=== PATIENT | male | born 1960 | race Caucasian/White ===

== ENCOUNTER 2017-05-12 17:27 | Emergency (ER) | payer OTHER ==
[~2017-05-12] VITALS: Ht 170.2 cm; Wt 113.3 kg
[~2017-05-12 17:27] MED LIST changes: -ANTICRE6 PO
[2017-05-12 17:51] VITALS: TEMP 36.6; Ht 170.2 cm; Wt 113.3 kg
[2017-05-12] MEDS ORDERED: ANTICRE6 PO (18:14)
[2017-05-12] MEDS ORDERED: CIPROFLOXACIN 500 MG TAB PO STA (21:04)
[2017-05-12 21:56] VITALS: BP 127/83; PULSE 72; O2SAT 97
--- NOTE | 2017-05-12 22:50 | EMERGENCY ROOM VISIT NOTE ---
History Report prepared by Sergey: Steven Reynoso Under the Supervision of: Melissa VallesO. First contact with patient: 17:53 Chief Complaint: ABNORMAL DIAGNOSTIC TESTING Stated Complaint: BLADDER FULL- REFERRED History of Present Illness The patient is a 56 year old male who presents to the Emergency Room with complaints of a worsening urinary retention over the past few weeks. He states that he was told that he had a UTI a couple months ago, but he has not gotten rid of it completely. The patient says that when he feels the urge to urinate he goes, but does not void as much as he'd like. He states that he is still on antibiotics, and was told that he had Enterococcus. The patient says that he has felt abdominal fullness but no pain. He had an ultrasound today which revealed 2300 cc's in his bladder, so he was sent here. The patient says that he has never had a catheter inserted. The patient denies headache, change in vision, fevers, chest pain, shortness of breath, nausea, vomiting, diarrhea, pain with urination, and melena. Source of History: patient Onset: Over past few weeks Position: other (bladder) Symptom Intensity: 2300 cc's Quality: other (retention of urine) Timing: worsening Associated Symptoms: + abdominal pain (but feels full), + urinary symptoms, No fevers, No headache, No chest pain, No SOB, No nausea, No vomiting, No diarrhea Review of Systems See HPI for pertinent positives & negatives. A total of 10 systems reviewed and were otherwise negative. Past Medical & Surgical Medical Problems: (1) Bronchitis (2) No chronic diseases present (3) PNA (pneumonia) Family History Cancer Diabetes mellitus Heart disease Hypertension Social History Smoking Status: Never Smoker Marital Status: Housing Status: lives with family Occupation Status: employed Current/Historical Medications Scheduled [Antibiotic], 1 DOSE PO BID Allergies Coded Allergies: No Known Allergies (Verified , *, 05/12/17) Physical Exam Vital Signs Date Time Temp Pulse Resp B/P (MAP) Pulse Ox O2 Delivery O2 Flow Rate FiO2 05/12/17 21:56 72 18 127/83 97 05/12/17 20:05 67 18 134/92 97 Room Air 05/12/17 17:51 36.6 67 18 157/103 96 Room Air Physical Exam GENERAL: Sitting up in bed, alert, well appearing, well nourished, no distress, non-toxic EYE EXAM: normal conjunctiva. OROPHARYNX: no exudate, no erythema, lips, buccal mucosa, and tongue normal and mucous membranes are moist LUNGS: Clear to auscultation. Normal chest wall mechanics HEART: no murmurs, S1 normal and S2 normal ABDOMEN: abdomen soft, suprapubic tenderness, normo-active bowel sounds, no masses, no rebound or guarding. BACK: Back is symmetrical on inspection and there is no deformity, no midline tenderness, no CVA tenderness. SKIN: no rashes and no bruising UPPER EXTREMITIES: upper extremities are grossly normal. LOWER EXTREMITIES: No pitting edema. NEURO EXAM: Normal sensorium, cranial nerves II-XII grossly intact, normal speech, no gross weakness of arms, no gross weakness of legs. Medical Decision & Procedures Laboratory Results Test 05/12/17 18:55 Urine Color YELLOW Urine Appearance CLEAR (CLEAR) Urine pH 6.5 (4.5-7.5) Urine Specific [place] 1.022 (1.000-1.030) Urine Protein NEG (NEG) Urine Glucose (UA) NEG (NEG) Urine Ketones NEG (NEG) Urine Occult Blood NEG (NEG) Urine Nitrite NEG (NEG) Urine Bilirubin NEG (NEG) Urine Urobilinogen NEG (NEG) Urine Leukocyte Esterase NEG (NEG) Urine WBC (Auto) 1-5 /hpf (0-5) Urine RBC (Auto) 0-4 /hpf (0-4) Urine Hyaline Casts (Auto) 1-5 /lpf (0-5) Urine Epithelial Cells (Auto) 5-10 /lpf (0-5) Urine Bacteria (Auto) NEG (NEG) Laboratory results per my review. Medications Administered Medications (Trade) Dose Ordered Sig/Shaheen Route Start Time Stop Time Status Last Admin Dose Admin Ciprofloxacin (Cipro Tab) 500 mg NOW STAT PO 05/12/17 21:04 05/12/17 21:05 DC 05/12/17 21:54 500 MG ED Course ED COURSE: Vital signs were reviewed and showed hypertensive situational vitals. The patients medical record was reviewed The above diagnostic studies were performed and reviewed. ED treatments and interventions as stated above. 1801: The patient was evaluated in room A4B. A complete history and physical examination was performed. 2101: Upon reevaluation, the patient is resting comfortably.I discussed my findings with the patient and he understands and agrees with the treatment plan. Based on the patients age, coexisting illnesses, exam and lab findings the decision to treat as an outpatient was made. The patient remained stable while under my care. The patient appeared well at the time of discharge. Medical Decision Differential diagnoses includes but is not limited to gastritis, peptic ulcer disease, GERD, gallbladder disease, pancreatitis, small bowel obstruction, acute coronary syndrome, pericarditis, ischemic bowel, irritable bowel disease, irritable bowel syndrome, appendicitis, diverticulitis, malignancy, hernia, urinary tract infection, torsion, perforation, trauma, infectious. Patient is a 56-year-old male that presents the ER referred in by PCP as he was recently diagnosed with UTI and placed on antibiotics. With this and his urinary urgency and intermittent frequency and ultrasound was performed which showed enlarged bladder. Patient was referred in for Mnejivar. Menjivar was placed and 200 mL's was removed. This is removed gradually. He was given a dose of Cipro. He has an appointment with his PCP tomorrow. He will follow-up with him and urology as an outpatient. UA without signs of UTI. Since he is completely asymptomatic I do favor that this is likely a chronic urinary retention. Discussed with Pt concerning signs and symptoms to watch out for. Pt was instructed to follow up with their PCP and discussed with the patient their option to return to the ED at anytime for persistent or worsening symptoms. The appropriate anticipatory guidance and out-patient management, including indications for return to the emergency department, were explained at length to the patient and understood. Medication Reconcilliation Current Medication List: was personally reviewed by me Blood Pressure Screening Patient's blood pressure: Elevated blood pressure Blood pressure disposition: Elevated BP felt to be situational Impression Primary Impression: Urinary retention Scribe Attestation The scribe's documentation has been prepared under my direction and personally reviewed by me in its entirety. I confirm that the note above accurately reflects all work, treatment, procedures, and medical decision making performed by me. Departure Information Dispostion Home / Self-Care Referrals Eddy Camp M.D. (PCP) Kiran Fuentes M.D. Patient Instructions Catheter Bag Urinary Empty Clean, ED Catheter Care Menjivar, ED Retention Urinary Female, [facility] Additional Instructions Please follow up with your primary care doctor with in the next 24 hours. Any worsening of your symptoms, please return to the ED immediately. This includes any fevers greater than 100.4, worsening pain, chest pain, shortness breath, persistent nausea, vomiting, unable to eat or drink, or any other concerning signs or symptoms from your standpoint. Please keep your Menjivar site clean and follow-up with your physician tomorrow. Please set up an appointment with urology call their office first thing tomorrow morning. The numbers listed below.
== END 2017-05-12 21:59 | disposition home or self-care (01) ==
LOC: C.EDB 17:29 → C.EDA 21:59
DX: R33.9 Retention of urine, unspecified (principal); Z87.440 Personal history of urinary (tract) infections; Z87.01 Personal history of pneumonia (recurrent); Z80.9 Family history of malignant neoplasm, unspecified; Z83.3 Family history of diabetes mellitus; Z82.49 Family history of ischemic heart disease and other diseases of the circulatory system

== ENCOUNTER → 2017-05-12 | Outpatient (CLI) | payer OTHER ==
[~2017-05-12] MED LIST: ANTICRE6 PO; CEPH500C PO
--- NOTE | 2017-05-12 13:35 | DIAGNOSTIC IMAGING REPORT ---
EXAMINATION: RENAL ULTRASOUND CLINICAL HISTORY: Urinary tract infection COMPARISON STUDY: FINDINGS: The right kidney measures 11.1 cm. The left kidney measures 11.8 cm. There is no evidence of hydronephrosis. There is a 2.5 cm upper pole right renal cyst. There is a posterior bladder diverticulum. The prevoid volume was 2200 cc. The patient was instructed to void. There is a post void bladder volume of 2300 cc. IMPRESSION : 1. 2.5 cm upper pole right renal cyst 2. Distended bladder with a posterior bladder diverticulum. 3. The patient was unable to void. The post void bladder volume was 2300 cc Electronically signed by: Holden Sequeira M.D. 05/12/2017 1:34 PM Dictated Date/Time: 05/12/2017 11:49 AM
== END | disposition home or self-care (01) ==
LOC: C.ULTRBC 10:46
PROVIDERS: ATTEND Family Medicine
DX: N39.0 Urinary tract infection, site not specified (principal); N28.1 Cyst of kidney, acquired; N32.3 Diverticulum of bladder; R33.9 Retention of urine, unspecified

== ENCOUNTER 2021-02-19 17:57 | Inpatient (IN) ==
[2021-02-19] MEDS ORDERED: CEFEPIME 2,000 MG/20 ML VIAL IV STA (18:23)
[2021-02-19] MEDS ORDERED: ACETAMINOPHEN 500 MG TAB PO STA (18:23)
[2021-02-19] MEDS ORDERED: SODIUM CHLORIDE 0.9% 1000ML 2,000 ML IV ONE (18:23)
--- NOTE | 2021-02-19 18:23 | Emergency Department Note ---
Impression & Plan Gram-negative bacteremia, Dysuria, Complicated UTI (urinary tract infection), Hyponatremia, Acute dehydration ED Provider Note NAME: EYAL ROJAS II AGE: 60 SEX: M : 1960 ARRIVES VIA: Walk-In INFORMANT: Patient, ED PROVIDER(S): Jaylen Aguilar MD Chief Complaint: ED callback for positive blood cultures, urinary symptoms HPI: Patient does present due to concern as he was called and notified that he had positive blood cultures. The patient had had some urinary symptoms beginning several days ago and stated that he has had a UTI in the past and noticed this because it was cloudy and foul-smelling. Patient has had low-grade temperature and chills. The patient has had nausea but no vomiting. The p atient does complain of chronic low back pain but denies any flank pain. The patient denies any hematuria. The patient was started on antibiotics yesterday. Patient denies any chest pains or shortness of breath. The patient is vaccinated for COVID-19 as well as a flu. Patient is non-smoker. Patient has been taking [id number] medications at home in addition to his antibiotics. He does follow with Dr. Camp in the outpatient setting. ROS: See HPI for pertinent positives and negatives. A total of 10 systems were reviewed and otherwise negative. Past medical history: See below Surgical history: See below Social history: See below Physical Exam: GENERAL: Mildly ill in appearance, nontoxic. EYE EXAM: Normal conjunctiva. PERRL, no anisocoria and EOM's grossly intact w/o pain. OROPHARYNX: Dry mucus membranes. Grossly normal dentition. NECK: Supple, no nuchal rigidity, no adenopathy, non-tender. No signs of meningismus. LUNGS: Clear to auscultation. Normal chest wall mechanics. HEART: Tachycardic and regular, no MRG. ABDOMEN: Abdomen soft, non-tender, normo-active bowel sounds, no masses, no rebound or guarding. BACK: No CVA TTP. Mild lower lumbar midline pain but without step-offs or overlying skin changes. No paraspinal discomfort. SKIN: No rashes and no bruising. UPPER EXTREMITIES: Upper extremities are grossly normal. LOWER EXTREMITIES: Grossly normal, no edema. NEURO EXAM: A&O x3, cranial nerves II-XII grossly intact, normal speech, moves all 4 extremities on command w/o issue. Differential diagnoses: Sepsis, UTI, pneumonia, metabolic, electrolyte abnor malities, cardiac sources, intracerebral event, toxicologic, neurologic, as well as other pathologies. Course: Patient was seen and evaluated the bedside. Full history physical exam was performed. EKG interpreted by me Sinus tachycardia, rate of 103, normal intervals, normal axis, no ST changes or T WI. Imaging Studies: See Below Cardiac monitoring: An order was placed for continuous cardiac monitoring. The monitor shows a rate of 105 with tachycardic and regular rhythm. MDM: Patient is a white count of 14 with a normal H&H and platelet count. The patient's kidney function is unremarkable. Mild hyponatremia noted. Patient's lactate is normal. Urinalysis does not show obvious infection but the patient has been on antibiotics. The patient's blood cultures did show gram-negative bacilli as the patient upon presentation had been ordered cefepime. The patient does not have any flank pain do not believe he has likely kidney infection to warrant CT scan at this time. Patient has no abdominal pain. The patient does not complain of any cough. Screening chest x-ray ordered and negative. I did speak with the on-call hospitalist Dr. Esteban and the patient was admitted to the medicine service. Past Med/Surg History Medical History Bladder diverticulum Neurogenic bladder Tick bite of right thigh Surgical History No pertinent past surgical history Social History Smoking Status: Never smoker Feels Safe at Home: Yes Immunizations: Vaccinated for COVID-19 and flu Allergies Allergies Allergy/AdvReac Type Severity Reaction Status Date / Time No Known Allergies Allergy * Verified 02/19/21 18:20 Home Meds Previous Rx's Medication Instructions Recorded sulfamethoxazole 800 1 tab PO BID 10 Days #20 tab 02/19/21 mg-trimethoprim 160 mg tablet (Bactrim DS) Results & Data (ED) Vital Signs Vital Signs - 24 hr 02/19/21 18:12 02/19/21 18:46 02/19/21 19:09 Temperature 37.6 C H Temperature Source Skin Pulse Rate 111 H 99 H Pulse Rate [Apical] 106 H Pulse Rate from SpO2 Sensor Respiratory Rate 18 19 Respiratory Effort / Characteristics Non-Labored Spontaneous Respiratory Depth Normal Blood Pressure 151/87 H Blood Pressure [Left Arm] 124/63 Blood Pressure Mean 108 Blood Pressure Mean [Left Arm] 83 Pulse Oximetry 94 100 95 Oxygen Delivery Method Room Air Room Air Sepsis Recent Fever Within 48 Hours Yes Sepsis New/Unexplained Change in Mental Status No Sepsis Action Taken by Nursing No Action Required 02/19/21 19:18 02/19/21 19:50 02/19/21 20:00 Temperature Temperature Source Pulse Rate 100 H 107 H 103 H Pulse Rate [Apical] Pulse Rate from SpO2 Sensor 138 H 102 H Respiratory Rate 15 25 H 15 Respiratory Effort / Characteristics Respiratory Depth Blood Pressure 117/71 Blood Pressure [Left Arm] Blood Pressure Mean 86 Blood Pressure Mean [Left Arm] Pulse Oximetry 97 93 94 Oxygen Delivery Method Room Air Sepsis Recent Fever Within 48 Hours Sepsis New/Unexplained Change in Mental Status Sepsis Action Taken by Nursing 02/19/21 20:10 02/19/21 21:00 Temperature Temperature Source Pulse Rate 100 H 91 H Pulse Rate [Apical] Pulse Rate from SpO2 Sensor 99 H 88 Respiratory Rate 17 20 Respiratory Effort / Characteristics Respiratory Depth Blood Pressure 103/79 Blood Pressure [Left Arm] Blood Pressure Mean 87 Blood Pressure Mean [Left Arm] Pulse Oximetry 95 94 Oxygen Delivery Method Room Air Sepsis Recent Fever Within 48 Hours Sepsis New/Unexplained Change in Mental Status Sepsis Action Taken by Detention Medications Current Medication List: was personally reviewed by me Laboratory Data Attestation: I reviewed the patient's lab results. Result diagrams: 02/19/21 18:43 02/19/21 18:43 Lab Results 02/19/21 02/19/21 02/19/21 Range/Units 18:43 18:43 18:43 WBC 14.43 H (4.8-10.8) K/uL RBC 4.85 (4.7-6.1) M/uL Hgb 15.7 (14.0-18.0) g/dL Hct 45.2 (42-52) % MCV 93.2 (80-100) fL MCH 32.4 (25-34) pg MCHC 34.7 (32-36) g/dL RDW Std Deviation 42.0 (36.4-46.3) fL RDW Coeff of Jomar 12.4 (11.5-14.5) % Plt Count 183 (130-400) K/uL MPV 10.3 (7.4-10.4) fL Immature Gran % (Auto) 0.3 % Neut % (Auto) 89.4 % Lymph % (Auto) 3.7 % [place] % (Auto) 6.4 % Eos % (Auto) 0.1 % Baso % (Auto) 0.1 % Neut # (Auto) 12.90 H (1.4-6.5) K/uL Lymph # (Auto) 0.54 L (1.2-3.4) K/uL [place] # (Auto) 0.93 H (0.11-0.59) K/uL Eos # (Auto) 0.01 (0-0.5) K/uL Baso # (Auto) 0.01 (0-0.2) K/uL Immature Gran # (Auto) 0.04 H (0.00-0.02) K/uL PT 11.3 (9.0-12.0) Seconds INR 1.1 (0.9-1.1) APTT 28.5 (21.0-31.0) Seconds PTT Ratio 1.1 Sodium 134 L (136-145) mmol/L Potassium 3.8 (3.5-5.1) mmol/L Chloride 104 (98-107) mmol/L Carbon Dioxide 23 (21-32) mmol/L Anion Gap 7 (3-11) BUN 19 (6-23) mg/dl Creatinine 0.99 (0.6-1.4) mg/dl Est Cr Clr Drug Dosing 97.8 ml/min Est GFR ( Amer) 96.2 ml/min Est GFR (Non-Af Amer) 83.0 ml/min BUN/Creatinine Ratio 19.2 (10-20) Glucose 111 H (70-99) mg/dl Lactate (0.4-2.0) mmol/L Calcium 8.8 (8.5-10.1) mg/dl Magnesium 1.8 (1.7-2.4) mg/dl Total Bilirubin 1.1 H (0.2-1.0) mg/dl AST 20 (13-39) U/L ALT 27 (7-52) U/L Alkaline Phosphatase 59 (34-104) U/L Troponin I < 0.03 (0-0.04) ng/ml Total Protein 6.8 (6.0-8.3) gm/dl Albumin 4.0 (3.4-5.0) gm/dl Globulin 2.8 (2.5-4.0) gm/dl Albumin/Globulin Ratio 1.4 (0.9-2) TSH (0.300-4.500) uIu/ml Urine Color Urine Appearance (Clear) Urine pH (4.5-7.5) Ur Specific [place] (1.000-1.030) Urine Protein (Negative) Urine Glucose (UA) (Negative) Urine Ketones (Negative) Urine Blood (Negative) Urine Nitrite (Negative) Urine Bilirubin (Negative) Urine Urobilinogen (Negative) Ur Leukocyte Esterase (Negative) Urine WBC (Auto) (0-5) /hpf Urine RBC (Auto) (0-4) /hpf U Hyaline Cast (Auto) (0-5) /lpf U Epithel Cells (Auto) (0-5) /lpf Urine Bacteria (Auto) (Negative) Ur Renal Epithelial Cell 02/19/21 02/19/21 02/19/21 Range/Units 18:43 19:41 20:48 WBC (4.8-10.8) K/uL RBC (4.7-6.1) M/uL Hgb (14.0-18.0) g/dL Hct (42-52) % MCV (80-100) fL MCH (25-34) pg MCHC (32-36) g/dL RDW Std Deviation (36.4-46.3) fL RDW Coeff of Jomar (11.5-14.5) % Plt Count (130-400) K/uL MPV (7.4-10.4) fL Immature Gran % (Auto) % Neut % (Auto) % Lymph % (Auto) % [place] % (Auto) % Eos % (Auto) % Baso % (Auto) % Neut # (Auto) (1.4-6.5) K/uL Lymph # (Auto) (1.2-3.4) K/uL [place] # (Auto) (0.11-0.59) K/uL Eos # (Auto) (0-0.5) K/uL Baso # (Auto) (0-0.2) K/uL Immature Gran # (Auto) (0.00-0.02) K/uL PT (9.0-12.0) Seconds INR (0.9-1.1) APTT (21.0-31.0) Seconds PTT Ratio Sodium (136-145) mmol/L Potassium (3.5-5.1) mmol/L Chloride (98-107) mmol/L Carbon Dioxide (21-32) mmol/L Anion Gap (3-11) BUN (6-23) mg/dl Creatinine (0.6-1.4) mg/dl Est Cr Clr Drug Dosing ml/min Est GFR ( Amer) ml/min Est GFR (Non-Af Amer) ml/min BUN/Creatinine Ratio (10-20) Glucose (70-99) mg/dl Lactate 0.6 (0.4-2.0) mmol/L Calcium (8.5-10.1) mg/dl Magnesium (1.7-2.4) mg/dl Total Bilirubin (0.2-1.0) mg/dl AST (13-39) U/L ALT (7-52) U/L Alkaline Phosphatase (34-104) U/L Troponin I (0-0.04) ng/ml Total Protein (6.0-8.3) gm/dl Albumin (3.4-5.0) gm/dl Globulin (2.5-4.0) gm/dl Albumin/Globulin Ratio (0.9-2) TSH 0.857 (0.300-4.500) uIu/ml Urine Color Yellow Urine Appearance Clear (Clear) Urine pH 6.0 (4.5-7.5) Ur Specific [place] 1.017 (1.000-1.030) Urine Protein Negative (Negative) Urine Glucose (UA) Negative (Negative) Urine Ketones 1+ H (Negative) Urine Blood Negative (Negative) Urine Nitrite Negative (Negative) Urine Bilirubin Negative (Negative) Urine Urobilinogen Negative (Negative) Ur Leukocyte Esterase 1+ H (Negative) Urine WBC (Auto) 10-30 H (0-5) /hpf Urine RBC (Auto) 0-4 (0-4) /hpf U Hyaline Cast (Auto) 1-5 (0-5) /lpf U Epithel Cells (Auto) >30 H (0-5) /lpf Urine Bacteria (Auto) Negative (Negative) Ur Renal Epithelial Cell Not Reportable Administered Medications Discontinued Medications Acetaminophen (Acetaminophen 500 Mg Tab) 1,000 mg PO NOW STA Stop: 02/19/21 18:24 Last Admin: 02/19/21 19:15 Dose: 1,000 mg Documented by: [id number] Diclofenac Sodium (Diclofenac Sod 1% Gel 100 Gm Tube) 2 gm EXT ONE STA Stop: 02/19/21 21:20 Last Admin: 02/19/21 21:45 Dose: 2 gm Documented by: [id number] Cefepime HCl (Maxipime) 2,000 mg in 20 mls @ 5 mls/min IV NOW STA; Protocol Stop: 02/19/21 18:26 Last Admin: 02/19/21 19:15 Dose: 5 mls/min Documented by: [id number] Sodium Chloride (Nss 1000ml) 2,000 mls @ 999 mls/hr IV .Q2H1M ONE Stop: 02/19/21 20:23 Last Admin: 02/19/21 19:15 Dose: 999 mls/hr Documented by: [id number] Imaging Data Radiologist's Impression: Chest X-Ray 02/19/21 18:24 SINGLE VIEW CHEST CLINICAL HISTORY: Generalized weakness. FINDINGS: 2 AP, portable, semierect chest radiographs are compared to study performed earlier the same day 02/19/2021. The heart appears mildly enlarged. There is mild bibasilar scarring/atelectasis. No airspace consolidation or large pleural effusion is identified. No pneumothorax is seen. The bony thorax is grossly intact. IMPRESSION: No acute cardiopulmonary abnormality is identified. ACT 112: Negative or not required by law. Electronically signed by: Nuno Meehan M.D. 02/19/2021 7:11 PM Discharge Plan Visit Data Chief Complaint: Urinary Symptoms Stated Complaint: UTI, TOLD TO COME BACK ED Provider: Jaylen Aguilar Discharge Problem: Gram-negative bacteremia, Dysuria, Complicated UTI (urinary tract infection), Hyponatremia, Acute dehydration Patient Disposition: Admitted As Inpatient Discharge Instructions Interventions: ED Discharge Assessment Last Done: 02/19/21 22:19
[2021-02-19 19:01] LABS: Basophils # (auto) 0.01 K/uL (0-0.2); Basophils % (auto) 0.1 %; Eosinophils # (auto) 0.01 K/uL (0-0.5); Eosinophils % (auto) 0.1 %; Hematocrit (blood only) 45.2 % (42-52); Hemoglobin 15.7 g/dL (14.0-18.0); Immature Granulocytes # (auto) 0.04 K/uL (0.00-0.02); Immature Granulocytes % (auto) 0.3 %; Lymphocytes # (auto) 0.54 K/uL (1.2-3.4); Lymphocytes % (auto) 3.7 %; Mean Corpuscular Hemoglobin 32.4 pg (25-34); Mean Corpuscular Hgb Conc 34.7 g/dL (32-36); Mean Corpuscular Volume 93.2 fL (80-100); Mean Platelet Volume 10.3 fL (7.4-10.4); Monocytes # (auto) 0.93 K/uL (0.11-0.59); Monocytes % (auto) 6.4 %; Neutrophils % (auto) 89.4 %; Platelet Count 183 K/uL (130-400); RDW Coefficient of Variation 12.4 % (11.5-14.5); Red Blood Count 4.85 M/uL (4.7-6.1); White Blood Count 14.43 K/uL (4.8-10.8)
[2021-02-19 19:11] LABS: INR 1.1 (0.9-1.1); Partial Thromboplastin Ratio 1.1; Partial Thromboplastin Time 28.5 Seconds (21.0-31.0); Prothrombin Time 11.3 Seconds (9.0-12.0)
--- NOTE | 2021-02-19 19:12 | XRay Report ---
SINGLE VIEW CHEST CLINICAL HISTORY: Generalized weakness. FINDINGS: 2 AP, portable, semierect chest radiographs are compared to study performed earlier the 02/19/2021. The heart appears mildly enlarged. There is mild bibasilar scarring/atelectasis. No airspace consolidation or large pleural effusion is identified. No pneumothorax is seen. The bony tho rax is grossly intact. IMPRESSION: No acute cardiopulmonary abnormality is identified. ACT 112: Negative or not required by law. Electronically signed by: Nuno Meehan M.D. 02/19/2021 7:11 PM
--- NOTE | 2021-02-19 19:22 | History & Physical Report ---
Date of Service February 19, 2021 Assessment & Plan (1) Complicated UTI (urinary tract infection): Plan: 60 y/o M w/ PMHx of BPH, neurogenic bladder, and recurrent UTIs (chronic intermittent cath) who presents w/ acute complicated UTI w/ resultant bacteremia and sepsis. cultures: 1 AM blood cultures w/ 2 bottles prelim growing gram neg bacilli. 02/19 PM blood cultures pending. 02/19 urine culture pending. - With tachycardia and leukocytosis; 2/4 SIRS - Cefepime 2g q12h IV for treatment of gram neg bacilli bacteremia; covering for pseudomonas. Prior cultures [id number] grew e coli, coag neg staph, Klebsiella oxytoca. Mostly pansensitive, w/ some cultures resistant to Unasyn and another to Cefazolin. Feb and April 2017, he grew tetracycline resistant enterococcus (sensitive to everything else including amp, FQ, vanc). Considered adding coverage for enterococcus such as Ampicillin or Vancomycin, defer given lower suspicion for enterococcus as last was in 2018. - Lower suspicion for pyelo at this time. Defer imaging unless new/worsened symptoms or if suspect new urinary tract obstruction. Mention of posterior bladder diverticulum but no mention of stone on 05/12/17 renal US. - Low back pain not in area of flank. Tylenol PRN. Voltaren gel and ice PRN - No repeat of blood cultures indicated. Source most likely urinary. - Fluid resuscitation: s/p 2L NSS in ED. Will provide 2 bags of maintenance fluid. Exam and hx not suggestive of CHF. BPH - Not on any medication therapy. Was on finasteride over one year ago. - Encourage patient to f/u w/ urology as outpatient to rediscuss finasteride vs Flomax. Neurogenic bladder and recurrent UTIs - Since 2018, patient chronic intermittently self-caths. Continue intermittent cath q4h scheduled + prn. - Was on prophylactic abx methenamine in past, but nonadherent and has not taken in ~ 9 months. FEN/GI: regular diet. 150/hr NSS x 2 bags. ppx: Lovenox sq code: full dispo: med/surg tele (2) Gram-negative bacteremia: (3) Benign prostatic hyperplasia with urinary obstruction: (4) Neurogenic bladder: History of Present Illness Chief Complaint: Bacteremia Primary Care Provider: Eddy Camp MD 60 y/o M w/ PMHx of BPH, neurogenic bladder, bladder diverticulum and recurrent UTIs (chronic intermittent cath, no preventive abx) who was seen in the ED yesterday for UTI (several hours of new nausea, chills, malodorous urine; s/p 1 dose Rocephin and discharged home w/ Bactrim) who represents today for gram neg bacilli bacteremia on prelim blood cultures. Denies suprapubic or abd pain. Saw chiropractor 2 days ago for back adjustment for sacral area low back pain s/p heavy snow shoveling. Still has 4/10 middle sacral low back pain. IV tylenol helping. Currently, just uncomfortable from his back. Today, chills are much better. ED course: Cefepime 2g. 2L NSS. Allergies Allergy/AdvReac Type Severity Reaction Status Date / Time No Known Allergies Allergy * Verified 02/19/21 18:20 Home Medications Medication Instructions Recorded Confirmed Type sulfamethoxazole 800 1 tab PO BID 10 Days #20 tab 02/19/21 02/19/21 Rx mg-trimethoprim 160 mg tablet (Bactrim DS) Past Med/Surg History Medical History Bladder diverticulum Neurogenic bladder Surgical History No pertinent past surgical history Social History Smoking Status: Former smoker Second Hand Exposure: No; Do You Dip or Chew Tobacco: No; Hx Alcohol Use: Yes Alcohol type: hard liquor Hx Substance Use: No Preferred Language: Ghanaian Communication Ability: Effective Heel Sorter Required: No Beliefs That Will Affect Care: None Current Living Situation: Spouse Feels Safe at Home: Yes Safety Concerns: Feels Safe At This Time Assistive Devices: Glasses Review of Systems Review of Systems: All systems reviewed & are unremarkable except as noted in HPI & below Constitutional: + fatigue Eyes: Denies blurry vision ENT: Denies sore throat, sinus pain Cardiovascular: Denies chest pain, palpitations Respiratory: Mild dyspnea yesterday, since resolved. Quit smoking 30 years ago. 10-15 year pack hx. Gastrointestinal: Denies abdominal pain, nausea, vomiting, constipation, diarrhea Genitourinary: See HPI Musculoskeletal: Denies weakness. + low back pain (sacral area, middle). Neurological: Denies headache, numbness, tingling, focal weakness Physical Exam Physical Exam: General: Grossly A&O. NAD. Cooperative. Appears mildly uncomfortable from low back pain; difficult to find comfortable position in bed. HEENT: Atraumatic, normocephalic. EOMI. PERRL. MMM. Pulm: CTAB. -wheezes, -rales, -rhonchi. Slightly tight sounding. No respiratory distress. Cardiac: RRR, -mrg. Radial pulses intact and symmetrical. Abdominal: Nontender, nondistended, soft. Back: No CVA TTP. Neuro: Strength and sensation of extremities intact. Integ: Warm, dry, intact. Results & Data Results & Data ([facility]) Vital Signs (Past 12 Hours) Vital Signs HR mostly upper 90s. 37.6C x1. 94-100 sat on room air. 90-94 while in room. Temp Pulse Pulse Resp BP BP Pulse Ox 02/19/21 19:09 95 02/19/21 18:46 99 H 106 H 19 124/63 100 02/19/21 18:12 37.6 C H 111 H 18 151/87 H 94 Laboratory Results wbc 11.65->14.43, neutrophil predom. Na 134L. K 3.8. Cr 0.99. Mg 1.8. trop <0.03. TSH pending. UA w/ 2+ leuk esterase and >30 wbc. covid neg. 02/19/21 18:43 Coagulation 02/19/21 Range/Units 18:43 PT 11.3 (9.0-12.0) Seconds APTT 28.5 (21.0-31.0) Seconds CBC 02/19/21 Range/Units 18:43 WBC 14.43 H (4.8-10.8) K/uL RBC 4.85 (4.7-6.1) M/uL Hgb 15.7 (14.0-18.0) g/dL Hct 45.2 (42-52) % Plt Count 183 (130-400) K/uL Neut # (Auto) 12.90 H (1.4-6.5) K/uL Lymph # (Auto) 0.54 L (1.2-3.4) K/uL Grand # (Auto) 0.93 H (0.11-0.59) K/uL Eos # (Auto) 0.01 (0-0.5) K/uL Baso # (Auto) 0.01 (0-0.2) K/uL Intake and Output 02/19/21 02/19/21 02/19/21 06:59 14:59 22:59 Other: Weight 116 kg Patient Weight 02/20/21 06:59 Weight 116 kg Diagnostic Findings Chest X-Ray 02/19/21 18:24 SINGLE VIEW CHEST CLINICAL HISTORY: Generalized weakness. FINDINGS: 2 AP, portable, semierect chest radiographs are compared to study performed earlier the same day 02/19/2021. The heart appears mildly enlarged. There is mild bibasilar scarring/atelectasis. No airspace consolidation or large pleural effusion is identified. No pneumothorax is seen. The bony thorax is grossly intact. IMPRESSION: No acute cardiopulmonary abnormality is identified. ACT 112: Negative or not required by law. Electronically signed by: Nuno Meehan M.D. 02/19/2021 7:11 PM ECG Additional Comments: ecg 02/19/21 19:08. Per my read, NSRR 96, normal axis and intervals. No ST-T changes. Code Status & VTE Plan Code Status full VTE Prophylaxis Plan VTE Prophylaxis will be ordered: Yes Supervising Physician Co-Signing Physician Notes Patient seen and examined, chart reviewed, case discussed with Dr. West and I agree with his assessment and plan as documented above. In brief, patient is a 60yo male with neurogenic bladder with urinary retention and recurrent UTIs. Patient self-catheterizes several times per day. He has been seen by Urology for this issue, last in 12/2019. Patient seen in the ER earlier today 02/19/21 with nausea, chills and foul smelling urine thought to be secondary to UTI. He was administered a dose of IV Ceftriaxone and discharged home on Bactrim. Patient returns to the ER today as blood cultures drawn earlier have grown gram negative bacilli. Overall feels tired. He has back pain following recent shoveling. No additional complaints On exam he is resting comfortably in bed, NAD Skin - warm, dry, intact HEENT - NC/AT,PERRL, MMM, Neck supple Heart - +S1/S2, regular, no m/r/g Lungs - CTA Abd- mild abdominal discomfort with palpation, no rebound/guarding/peritoneal signs Ext - warm, well perfused Labs and images reviewed. Significant for neutrophil predominant leukocytosis with WBC=14.43, Na of 134 Blood cultures from 02/19/21 at 00:57 and 01:07 POSITIVE for GNB in aerobic and anaerobic bottles Urine culture from 02/19/21 PENDING Blood cultures sent this evening PENDING Assessment/Plan - 60yo male presenting with gram negative bacilli bacteremia. Technically with sepsis on arrival (SIRS 3/4) blood and urine source. He is HD stable and nontoxic in appearance -Follow cultures, speciation sn/sp -Cefepime 2gm IV BID -Remainder as above Resident Activity Tracking Resident Involvement: Resident Care Provided Care Provided: Adult Hospital Medicine
[2021-02-19 19:27] LABS: Troponin I < 0.03 ng/ml (0-0.04)
[2021-02-19 19:36] LABS: Alanine Aminotransferase 27 U/L (7-52); Albumin Globulin Ratio 1.4 (0.9-2); Alkaline Phosphatase 59 U/L (34-104); Anion Gap 7 (3-11); Aspartate Aminotransferase 20 U/L (13-39); BUN Creatinine Ratio 19.2 (10-20); Bilirubin,Total 1.1 mg/dl (0.2-1.0); Blood Urea Nitrogen 19 mg/dl (6-23); Calcium 8.8 mg/dl (8.5-10.1); Carbon Dioxide 23 mmol/L (21-32); Chloride 104 mmol/L (98-107); Creatinine Clr Calc Pharmacy 97.8 ml/min; Est GFR (African American) 96.2 ml/min; Globulin 2.8 gm/dl (2.5-4.0); Glucose 111 mg/dl (70-99); Magnesium 1.8 mg/dl (1.7-2.4); Potassium 3.8 mmol/L (3.5-5.1); Sodium 134 mmol/L (136-145); Total Protein 6.8 gm/dl (6.0-8.3)
[2021-02-19] MEDS ORDERED: DICLOFENAC SOD 1% GEL 100 GM TUBE EXT STA (21:19)
[2021-02-19 21:22] LABS: Appearance Urine Clear (Clear); Bacteria Urine Automated Negative (Negative); Bilirubin Urine Negative (Negative); Blood Urine Negative (Negative); Color Urine Yellow; Epithelial Cell Urine Auto >30 /lpf (0-5); Glucose Urine UA Negative (Negative); Ketones Urine 1+ (Negative); Leukocyte Esterase Urine 1+ (Negative); Nitrite Urine Negative (Negative); Protein Urine Negative (Negative); RBC Urine Automated 0-4 /hpf (0-4); Specific Gravity Urine 1.017 (1.000-1.030); Urobilinogen Urine Negative (Negative)
[2021-02-19] MEDS ORDERED: POTASSIUM CHLORIDE PWD 20 MEQ PACK PO STA (21:42)
[2021-02-19] MEDS ORDERED: ONDANSETRON INJ 2 MG/ML 2 ML VIAL IV PRN (22:38)
[2021-02-19] MEDS ORDERED: POLYETHYLENE (MIRALAX) 17 GM PACK PO PRN (22:38)
[2021-02-19] MEDS ORDERED: DICLOFENAC SOD 1% GEL 100 GM TUBE EXT PRN (22:38)
[2021-02-19] MEDS: ENOXAPARIN INJ 40 MG/0.4 ML SYR SQ SCH (23:13)
[2021-02-19] MEDS: SODIUM CHLORIDE 0.9% 1000ML 1,000 ML IV SCH (23:14)
[2021-02-20] MEDS ORDERED: ACETAMINOPHEN 325 MG TAB PO PRN ×2 (01:10→03:15)
[2021-02-20] MEDS: CEFEPIME 2,000 MG in SYRINGE 0 ML IV SCH ×3 (03:19→20:06)
[2021-02-20] MEDS: SODIUM CHLORIDE 0.9% 1000ML 1,000 ML IV SCH (05:54)
[2021-02-20 07:20] LABS: Basophils # (auto) 0.01 K/uL (0-0.2); Basophils % (auto) 0.1 %; Eosinophils # (auto) 0.02 K/uL (0-0.5); Eosinophils % (auto) 0.2 %; Hematocrit (blood only) 42.1 % (42-52); Hemoglobin 14.3 g/dL (14.0-18.0); Immature Granulocytes # (auto) 0.02 K/uL (0.00-0.02); Immature Granulocytes % (auto) 0.2 %; Lymphocytes # (auto) 0.96 K/uL (1.2-3.4); Lymphocytes % (auto) 9.2 %; Mean Corpuscular Hemoglobin 32.1 pg (25-34); Mean Corpuscular Volume 94.6 fL (80-100); Mean Platelet Volume 9.9 fL (7.4-10.4); Monocytes # (auto) 0.89 K/uL (0.11-0.59); Monocytes % (auto) 8.6 %; Neutrophils # (auto) 8.49 K/uL (1.4-6.5); Neutrophils % (auto) 81.7 %; Platelet Count 149 K/uL (130-400); RDW Coefficient of Variation 12.7 % (11.5-14.5); RDW Standard Deviation 44.3 fL (36.4-46.3); Red Blood Count 4.45 M/uL (4.7-6.1); White Blood Count 10.39 K/uL (4.8-10.8)
[2021-02-20 07:45] LABS: Albumin Globulin Ratio 1.3 (0.9-2); Albumin Level 3.4 gm/dl (3.4-5.0); BUN Creatinine Ratio 12.5 (10-20); Bilirubin,Total 0.6 mg/dl (0.2-1.0); Creatinine Clr Calc Pharmacy 101.1 ml/min; Est GFR (African American) 99.9 ml/min; Est GFR (Non-African American) 86.2 ml/min; Globulin 2.6 gm/dl (2.5-4.0)
[2021-02-20] MEDS ORDERED: ACETAMINOPHEN 325 MG TAB PO SCH (10:45)
[2021-02-20] MEDS: ACETAMINOPHEN 325 MG TAB PO SCH ×3 (11:36→23:00)
[2021-02-20] MEDS: LIDOCAINE 5% 1 PATCH TD SCH (11:38)
--- NOTE | 2021-02-20 18:43 | Electrocardiogram Report ---
Test Reason : Blood Pressure : / mmHG Vent. Rate : 096 BPM Atrial Rate : 096 BPM P-R Int : 142 ms QRS Dur : 084 ms QT Int : 330 ms P-R-T Axes : 036 054 046 degrees QTc Int : 416 ms Normal sinus rhythm Normal ECG When compared with ECG of 19-FEB-2021 00:57, No significant change was found Confirmed by Tremayne Little ([id number]) on 02/20/2021 6:42:39 PM Referred By: REFERRED SELF Confirmed By:Tremayne Little
--- NOTE | 2021-02-20 20:37 | Hospitalist Progress Note ---
Date of Service February 20, 2021 Assessment & Plan (1) Complicated UTI (urinary tract infection): Plan: 60 y/o M w/ PMHx of BPH, neurogenic bladder, and recurrent UTIs (chronic intermittent cath) who presents w/ acute complicated UTI w/ resultant bacteremia and sepsis. cultures: 02/19 AM blood cultures w/ 2 bottles prelim growing gram neg bacilli. 02/19 PM blood cultures pending. 02/19 urine culture pending. UTI with sepsis likely due to intermittent self catheterization - With tachycardia and leukocytosis; 2/4 SIRS - Cefepime 2g q12h IV for treatment of gram neg bacilli bacteremia; covering for pseudomonas. Prior cultures [id number] grew e coli, coag neg staph, Klebsiella oxytoca. Mostly pansensitive, w/ some cultures resistant to Unasyn and another to Cefazolin. Feb and April 2017, he grew tetracycline resistant enterococcus (sensitive to everything else including amp, FQ, vanc). Considered adding coverage for enterococcus such as Ampicillin or Vancomycin, defer given lower suspicion for enterococcus as last was in 2018. - Lower suspicion for pyelo at this time. Defer imaging unless new/worsened symptoms or if suspect new urinary tract obstruction. Mention of posterior bladder diverticulum but no mention of stone on 05/12/17 renal US. - Low back pain not in area of flank. Tylenol PRN. Voltaren gel and ice PRN - No repeat of blood cultures indicated. Source most likely urinary. - Fluid resuscitation: s/p 2L NSS in ED. Will provide 2 bags of maintenance fluid. Exam and hx not suggestive of CHF. On 02/21/20 -Patient had a fever in the AM. -Afebrile since. -awaiting cultures -continue antibiotics -need 24-48 h without fever or culture results. (2) Gram-negative bacteremia: Plan: from problem 1 as above (3) Benign prostatic hyperplasia with urinary obstruction: Plan: - Not on any medication therapy. Was on finasteride over one year ago. - Encourage patient to f/u w/ urology as outpatient to rediscuss finasteride vs Flomax. (4) Neurogenic bladder: Plan: - Since 2018, patient chronic intermittently self-caths. Continue intermittent cath q4h scheduled + prn. - Was on prophylactic abx methenamine in past, but nonadherent and has not taken in ~ 9 months. FEN/GI: regular diet. 150/hr NSS x 2 bags. ppx: Lovenox sq code: full dispo: med/surg tele (5) Morbid obesity with body mass index (BMI) of 40.0 to 49.9: Plan: will recommend lifestyle modifications. will defer followup discussion to PCP Admission and Anticipated Discharge Date Admission Date: February 19, 2021 Subjective 60 yo male reports feeling better. He does complain of chronic back pain. 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 He states Tuesday will be a busy day. Review of Systems Review of Systems: All systems reviewed & are unremarkable except as noted in HPI & below Physical Exam Physical Exam: General: Grossly A&O. NAD. Cooperative. comfortable in bed. HEENT: Atraumatic, normocephalic. EOMI. PERRL. MMM. Pulm: CTAB. -wheezes, -rales, -rhonchi. Slightly tight sounding. No respiratory distress. Cardiac: RRR, -mrg. Radial pulses intact and symmetrical. Abdominal: Nontender, nondistended, soft. Back: No CVA TTP. Neuro: Strength and sensation of extremities intact. Integ: Warm, dry, intact. Results & Data Results & Data ([facility]) Vital Signs (Past 12 Hours) Vital Signs Temp Pulse Pulse Resp BP Pulse Ox 02/20/21 19:32 36.9 C 78 18 137/77 94 02/20/21 17:40 79 02/20/21 17:03 36.7 C 80 20 134/82 97 02/20/21 16:23 37.6 C H 81 24 168/74 H 94 02/20/21 16:00 79 02/20/21 12:59 37.8 C H 02/20/21 11:27 38.5 C H 93 H 16 152/80 H 95 02/20/21 08:53 37.3 C 90 18 141/75 H 94 PG Care Time/CCT Total # of Minutes Spent Total Time Spent with Patient: Total time spent is greater than 50% in coordination of care (as documented) at patient's floor/unit and/or counseling patient: Coding Level of Care Code 24626 Subseq Hosp Care Lvl 2 Diagnoses Complicated UTI (urinary tract infection) N39.0 Gram-negative bacteremia R78.81 Benign prostatic hyperplasia with urinary obstruction N40.1; N13.8 Neurogenic bladder N31.9 Morbid obesity with body mass index (BMI) of 40.0 to 49.9 E66.01
[2021-02-20] MEDS: ENOXAPARIN INJ 40 MG/0.4 ML SYR SQ SCH (22:59)
[2021-02-21] MEDS: CEFEPIME 2,000 MG in SYRINGE 0 ML IV SCH (03:48)
[2021-02-21] MEDS: ACETAMINOPHEN 325 MG TAB PO SCH ×2 (06:11→10:51)
[2021-02-21] MEDS: LIDOCAINE 5% 1 PATCH TD SCH (08:08)
[2021-02-21 10:15] LABS: Hematocrit (blood only) 43.8 % (42-52); Hemoglobin 15.1 g/dL (14.0-18.0); Mean Corpuscular Hemoglobin 32.1 pg (25-34); Mean Corpuscular Hgb Conc 34.5 g/dL (32-36); Mean Corpuscular Volume 93.2 fL (80-100); Mean Platelet Volume 10.5 fL (7.4-10.4); Platelet Count 188 K/uL (130-400); RDW Coefficient of Variation 12.5 % (11.5-14.5); RDW Standard Deviation 42.9 fL (36.4-46.3); White Blood Count 6.64 K/uL (4.8-10.8)
[2021-02-21] MEDS ORDERED: traMADol HCL 50 MG TABLET PO STA (10:21)
[2021-02-21] MEDS ORDERED: cefTRIAXone SODIUM 2,000 MG in DEXTROSE 5% 50 ML IV STA (10:41)
[2021-02-21 10:47] LABS: BUN Creatinine Ratio 13.1 (10-20); Calcium 8.6 mg/dl (8.5-10.1); Creatinine Clr Calc Pharmacy 114.3 ml/min; Est GFR (African American) 111.1 ml/min; Est GFR (Non-African American) 95.8 ml/min; Potassium 3.7 mmol/L (3.5-5.1)
--- NOTE | 2021-02-21 16:27 | Discharge Summary ---
Date of Service February 21, 2021 Admission HPI Per Admitting Provider 60 y/o M w/ PMHx of BPH, neurogenic bladder, bladder diverticulum and recurrent UTIs (chronic intermittent cath, no preventive abx) who was seen in the ED yesterday for UTI (several hours of new nausea, chills, malodorous urine; s/p 1 dose Rocephin and discharged home w/ Bactrim) who represents today for gram neg bacilli bacteremia on prelim blood cultures. Denies suprapubic or abd pain. Saw chiropractor 2 days ago for back adjustment for sacral area low back pain s/p heavy snow shoveling. Still has 4/10 middle sacral low back pain. IV tylenol helping. Currently, just uncomfortable from his back. Today, chills are much better. ED course: Cefepime 2g. 2L NSS. Principal Diagnosis UTI with bacteremia Lower back pain Discharge Exam Constitutional WD/WN, vitals as above Eyes EOM intact bilaterally; no conjunctival abnormality ENMT external ear and nose normal, oropharynx normal Neck trachea midline, no thyromegaly normal visual inspection Respiratory normal respiratory effort, lungs clear to auscultation no respiratory distress Cardiovascular RRR, no murmur, no edema Gastrointestinal (Abdomen) Inspection/Auscultation: abdomen normal to inspection; abdomen not distended Musculoskeletal no cyanosis or clubbing, extremities motor strength 5/5 Spine: + lumbar spinal tenderness Skin no rashes, warm and dry Neurologic moves all extremities and awake Psychiatric Orientation: alert, oriented to person and cooperative Discharge Data Allergies Allergy/AdvReac Type Severity Reaction Status Date / Time No Known Allergies Allergy * Verified 02/19/21 18:20 Consultations 02/19/21 19:06 ED Decision to Admit Stat Hospital Course (1) Complicated UTI (urinary tract infection): 60 y/o M w/ PMHx of BPH, neurogenic bladder, and recurrent UTIs (chronic intermittent cath) who presents w/ acute complicated UTI w/ resultant bacteremia and sepsis. cultures: 1 AM blood cultures w/ 2 bottles prelim growing gram neg bacilli. 02/19 PM blood cultures pending. 02/19 urine culture pending. UTI with sepsis likely due to intermittent self catheterization - With tachycardia and leukocytosis; 2/4 SIRS - Cefepime 2g q12h IV for treatment of gram neg bacilli bacteremia; covering for pseudomonas. Prior cultures [id number] grew e coli, coag neg staph, Klebsiella oxytoca. Mostly pansensitive, w/ some cultures resistant to Unasyn and another to Cefazolin. Feb and April 2017, he grew tetracycline resistant enterococcus (sensitive to everything else including amp, FQ, vanc). Considered adding coverage for enterococcus such as Ampicillin or Vancomycin, defer given lower suspicion for enterococcus as last was in 2018. - Lower suspicion for pyelo at this time. Defer imaging unless new/worsened symptoms or if suspect new urinary tract obstruction. Mention of posterior bladder diverticulum but no mention of stone on 05/12/17 renal US. - Low back pain not in area of flank. Tylenol PRN. Voltaren gel and ice PRN - No repeat of blood cultures indicated. Source most likely urinary. -awaiting cultures -continue antibiotics -need 24-48 h without fever or culture results. -> Urine and blood all with Klebsiella. Sensitive to FLQs. Discharged on 7 more days of ciprofloxacin. Encouraged PCP and urology f/u to see if there are other alternatives to self-cathing. (2) Gram-negative bacteremia: from problem 1 as above (3) Benign prostatic hyperplasia with urinary obstruction: - Not on any medication therapy. Was on finasteride over one year ago. - Encourage patient to f/u w/ urology as outpatient to rediscuss finasteride vs Flomax. (4) Neurogenic bladder: - Since 2018, patient chronic intermittently self-caths. Continue intermittent cath q4h scheduled + prn. - Was on prophylactic abx methenamine in past, but nonadherent and has not taken in ~ 9 months. - Encouraged to f/u with urology. (5) Back pain: Reports occasional back pain episodes which he is experiencing right now. Usually sees a chiropractor, but has not had a chance due to his UTI and bacteremia. - Encouraged NSAIDs and Tylenol within the bottle limits for the next 4-5 days. - Topical care with lidocaine patches or gel - Heat/cold packs - As last resort, prescribed short course of tramadol - Encouraged to f/u with chiropractor or spinal surgeon. He reported he knows Dr. Hernandez, and I offered to officially consult him, but the patient declined ("No need to get him involved."). Given Gram(-) bacteriemia, I have low concern for osteomyelitis or diskitis. No neurologic issues to indicate acute spinal cord issue (apart from his stable, chronic urinary retention). (6) Morbid obesity with body mass index (BMI) of 40.0 to 49.9: will recommend lifestyle modifications. will defer followup discussion to PCP Total Time Total Time Spent Total Time Spent (In Minutes): 35 Discharge Plan Discharge Items Patient Disposition: Home - Self-Care Reason For Visit: BACTEREMIA UTI Discharge Diagnosis: Urinary tract infection with some bacteria getting into the bloodstream Activity: Resume your previous activity Non-emergency contact: Primary Care Provider Call non-emergency contact if: your symptoms worsen, your pain is not controlled and your temperature is above 101 Follow-up/Referrals: Eddy Camp MD [Primary Care Provider] - (PLEASE CALL YOUR PRIMARY CARE PROVIDER TO SCHEDULE A DISCHARGE FOLLOW-UP APPOINTMENT WITHIN 7-10 DAYS.) Diet: Regular Addtl Attending Provider Instructions: Mr. Wellington, You were admitted to the hospital with bacteria in the urine and the bloodstream. Luckily, the kind of bacteria are what we consider more "wimpy" variety, and they can be treated successfully with pill antibiotics. You will take Cipro (ciprofloxacin) for 7 more days. You should NOT take the Bactrim you were previously prescribed. There is no benefit to taking multiple antibiotics and the Bactrim is not a good option while using the NSAID medications for your back. I would encourage you to go to your Urology doctor (or find one) because there may be other options rather than self-catheterization. Please see your PCP in a week or so to be sure you are doing well. For your back, here is the plan of attack: 1) You can take ibuprofen/Motrin or naproxen/Aleve up to the bottle recommendations for about 5 days without any major issues. However, doing this for weeks on end can result in stomach ulcers and kidney issues, so this is a "short-term" solution. These are called NSAID medications and will likely be the most effective. 2) You can also safely take Tylenol. Take 3 grams or less (that's 6 "extra strength" pills per day). Again, this is meant to be a temporary level of usage. Taking that much Tylenol for more than 3-4 days can be hard on your liver. 3) I have sent in 2 weeks worth of lidocaine patches for your lower back. If they are not covered by insurance, you can also use "Gian-[place] with Lido" patches which are almost as strong and usually about $10 per box. [employer]atan also makes a lidocaine cream which could help. Do NOT use "Voltaren" or "diclofenac" gel as this is an NSAID (similar to ibuprofen/Motrin or naproxen/Aleve), and the effects can stack up. 4) I have prescribed you a short course (3 days) of a narcotic medication. You can safely take this along with the ibuprofen/Motrin or naproxen/Aleve or Tylenol. This is meant to be your "last resort" medication if #1, #2, and #3 are not working. Every single person has some level of opiate addiction potential, so the less you take of this and the shorter the time you use it, the better. You should not drive while on the narcotic medication. You can use heat packs/cold packs or other local therapies in addition to the oral medications. Please see your chiropractor or Dr. Hernandez as soon as you are able to as this has helped relieve your back pain in the past. Pending Studies at Discharge: No Stand-Alone Forms: [facility], Smoking Cessation Medications and DC Order Prescriptions: New lidocaine 5 % Adhesive Patch,Medicated 1 patch transdermal QAM PRN (Reason: back pain) Qty: 15 RF: 0 ciprofloxacin HCl 500 mg tablet 500 mg PO BID Qty: 14 RF: 0 tramadol 50 mg tablet 50 mg PO TID PRN (Reason: pain) Qty: 14 RF: 0 Discontinued sulfamethoxazole-trimethoprim [Bactrim DS] 800-160 mg tablet 1 tab PO BID 10 Days Qty: 20 RF: 0 Discharge Orders: Discharge Order (Routine); Ordered 02/21/21 Ordered By: Matias Cline Admission Data Admit Date/Time: 02/19/21 21:11 Attending Provider: Matias Cline Admit Provider: Deep West Primary Care Provider: Eddy Camp Other Providers: Matias Cline Other Interventions: Discharge Summary Assessment (RN) Last Done: 02/21/21 10:43 Coding Level of Care Code D/C DAY MANAGEMENT >30 MINS Diagnoses Complicated UTI (urinary tract infection) N39.0 Gram-negative bacteremia R78.81 Benign prostatic hyperplasia with urinary obstruction N40.1; N13.8 Neurogenic bladder N31.9 Morbid obesity with body mass index (BMI) of 40.0 to 49.9 E66.01 Back pain M54.9
== END 2021-02-21 12:53 | disposition home or self-care (01) | DRG 698 ==
LOC: ED 17:57 → SUATTDRO 21:11 → 1E 21:11 → 2N 02-20 17:02

== ENCOUNTER 2024-01-17 10:30 | Inpatient (IN) ==
[2024-01-17 11:17] LABS: Basophils # (auto) 0.03 K/uL (0.00-0.20); Basophils % (auto) 0.2 %; Eosinophils # (auto) 0.02 K/uL (0.00-0.50); Eosinophils % (auto) 0.2 %; Hematocrit (blood only) 42.9 % (42.0-52.0); Hemoglobin 15.1 g/dl (14.0-18.0); Immature Granulocytes # (auto) 0.04 K/uL (0.01-0.20); Immature Granulocytes % (auto) 0.3 %; Lymphocytes # (auto) 0.86 K/uL (1.20-3.40); Mean Corpuscular Hemoglobin 32.1 pg (25.0-34.0); Mean Corpuscular Hgb Conc 35.2 g/dL (32.0-36.0); Mean Corpuscular Volume 91.3 fL (80.0-100.0); Mean Platelet Volume 9.9 fL (9.4-12.4); Monocytes # (auto) 1.61 K/uL (0.11-0.59); Monocytes % (auto) 13.1 %; Neutrophils % (auto) 79.2 %; Platelet Count 208 K/uL (130-400); RDW Coefficient of Variation 12.2 % (11.5-14.5); RDW Standard Deviation 41.4 fL (36.4-46.3); White Blood Count 12.26 K/ul (4.8-10.8)
[2024-01-17 11:26] LABS: Appearance Urine Clear (Clear); Bilirubin Urine Negative (Negative); Blood Urine 2+ (Negative); Color Urine Yellow; Glucose Urine UA Negative (Negative); Ketones Urine Negative (Negative); Leukocyte Esterase Urine 1+ (Negative); Nitrite Urine Negative (Negative); Protein Urine 2+ (Negative); Specific Gravity Urine >= 1.030 (1.000-1.030); Urobilinogen Urine Negative (Negative)
[2024-01-17] MEDS: SODIUM CHLORIDE 0.9% 1,000 ML IV ONE (11:30)
--- NOTE | 2024-01-17 11:37 | Emergency Department Note ---
Impression & Plan Acute pyelonephritis, Generalized weakness ED Provider Note NAME: EYAL ROJAS II AGE: 63 SEX: M : 1960 ARRIVES VIA: Walk-In INFORMANT: Patient, ED PROVIDER(S): Joon Gates DO CHIEF COMPLAINT: Urine infection HPI: The patient is a 63-year-old male who presented to the emergency department for an evaluation of generalized weakness. The patient has a history of self catheterization. He thinks he may have a urine infection. He said for rounds of antibiotics recently because of diagnosed urine infection. He started having fever and generalized weakness. For this reason he called his urologist who told him to come to the emergency department. He is currently taking Cipro. The patient denies having any vomiting. He denies having any chest pain or difficulty breathing. The patient has been compliant with his outpatient medications otherwise. He denies having any skin changes in the perineum. The patient has not been seen by his family doctor. ROS: See above HPI for pertinent positives & negatives. A total of 10 systems reviewed and were otherwise negative. PAST MEDICAL HISTORY: See Below PAST SURGICAL HISTORY: See Below FAMILY HISTORY: See Below SOCIAL HISTORY: See Below HOME MEDICATIONS: See Below ALLERGIES: See Below VITALS: See Below PHYSICAL EXAMINATION: GENERAL: Patient is awake alert in no acute distress patient is resting comfortably and showing no signs of anxiety EYES: The conjunctivae are clear. The pupils are round and reactive. EARS, NOSE, MOUTH AND THROAT: The nose is without any evidence of any deformity. Mucous membranes are moist. Tongue is midline. NECK: The neck is nontender and supple. RESPIRATORY: Normal respiratory effort is noted there is no evidence of wheezing rhonchi or rales CARDIOVASCULAR: Cardiac and regular heart sounds were noted to auscultation. There is no definite murmur. GASTROINTESTINAL: The abdomen is soft. Abdomen is nontender. : Circumcised male genitalia was noted. There was erythema noted to the scrotum but no skin changes consistent with gangrene. There was a sliding inguinal hernia noted. MUSCULOSKELETAL/EXTREMITIES: There is no evidence of gross deformity full range of motion is noted in the hips and shoulders. SKIN: There is no obvious evidence of any rash. There are no petechiae, pallor or cyanosis noted. NEUROLOGIC: Patient is awake alert and oriented x3 MEDICAL DECISION MAKING: The patient is a 63-year-old male who does self cath for urine who presented to the emergency department for an evaluation of fever. The patient is on his fourth antibiotic regimen because of presumed urinary tract infection. The patient was treated with IV antibiotics in the emergency department. I did review the patient's previous urine culture which was pansensitive. I discussed the patient's laboratory and radiographic studies with him. The patient was reevaluated multiple times. Because of his findings I did discuss his case with the on-call [facility]. They have agreed to evaluate the patient in the emergency department for further management and disposition. Triage Nursing notes reviewed. Prior medical records reviewed Vital Signs: reviewed and remarkable for tach cardia initially. Differential diagnosis: Viral syndrome, otitis, pharyngitis, pneumonia, influenza, meningitis, urinary tract infection, sepsis, bacteremia, as well as other pathologies. ER treatment provided: See below Diagnostics interpreted by me: ECG: EKG was obtained in the emergency department. My interpretation is normal sinus rhythm at 99 bpm. There is no ectopy. There is no acute ST segment abnormalities noted. This was compared to a tracing from February 19, 2021. No changes were noted. Cardiac Monitoring: An order was placed for continuous cardiac monitoring. The monitor shows a rate of 80 bpm with sinus rhythm. Laboratory studies: As stated above and show below. Imaging studies: See below. Radiographic imaging was reviewed by myself Consultation(s): I discussed this case with Jolie who is on-call for the [facility] group. Past Med/Surg History Problem List (Updated 01/17/24 @ 13:25 by Joon Gates DO) Generalized weakness (Acute) Acute pyelonephritis (Acute) Back pain Morbid obesity with body mass index (BMI) of 40.0 to 49.9 Hyponatremia (Acute) Acute dehydration (Acute) Neurogenic bladder Gram-negative bacteremia (Acute) Complicated UTI (urinary tract infection) (Acute) Malodorous urine UTI symptoms Benign prostatic hyperplasia with urinary obstruction (Acute) Dysuria (Acute) No chronic diseases present (Acute) UTI (urinary tract infection) (Acute) Urinary retention (Acute) Medical History Bladder diverticulum Surgical History No pertinent past surgical history Social History Smoking Status: Never smoker Second Hand Exposure: No; Do You Dip or Chew Tobacco: No; Hx Alcohol Use: Yes Alcohol type: hard liquor Hx Substance Use: No Preferred Language: Liberian Communication Ability: Effective Grain Trader Required: No Beliefs That Will Affect Care: None Current Living Situation: Spouse Feels Safe at Home: Yes Assistive Devices: Glasses Allergies Allergies Allergy/AdvReac Type Severity Reaction Status Date / Time No Known Allergies Allergy * Verified 01/09/24 13:31 Home Meds Previous Rx's Medication Instructions Recorded tramadol 50 mg tablet 50 mg PO TID PRN pain #14 tabs 02/21/21 methenamine hippurate 1 gram tablet 1 g PO BID #180 tabs 03/10/23 ciprofloxacin HCl 500 mg tablet 500 mg PO BID #28 tabs 01/16/24 Results & Data (ED) Vital Signs Vital Signs - 24 hr 01/17/24 10:34 01/17/24 11:30 01/17/24 12:09 Temperature 37.0 C Temperature Source Oral Pulse Rate 122 H 85 Pulse Rate from SpO2 Sensor 85 Respiratory Rate 18 19 Blood Pressure 130/78 Blood Pressure Mean 95 Blood Pressure Position Sitting Pulse Oximetry 92 94 95 Oxygen Delivery Method Room Air Room Air Room Air Sepsis Recent Fever Within 48 Hours No Sepsis New/Unexplained Change in Mental Status No Sepsis Action Taken by Nursing No Action Required 01/17/24 12:30 01/17/24 12:30 01/17/24 12:31 Temperature Temperature Source Pulse Rate 81 82 Pulse Rate from SpO2 Sensor 82 Respiratory Rate 21 Blood Pressure 156/98 H Blood Pressure Mean 115 Blood Pressure Position Pulse Oximetry 94 Oxygen Delivery Method Room Air Sepsis Recent Fever Within 48 Hours Sepsis New/Unexplained Change in Mental Status Sepsis Action Taken by Custodial Medications Current Medication List: was personally reviewed by me Laboratory Data Attestation: I reviewed the patient's lab results. 01/17/24 10:53 01/17/24 10:53 Lab Results 01/17/24 01/17/24 01/17/24 Range/Units 10:53 11:05 11:56 WBC 12.26 H (4.8-10.8) K/ul RBC 4.70 (4.70-6.10) M/uL Hgb 15.1 (14.0-18.0) g/dl Hct 42.9 (42.0-52.0) % MCV 91.3 (80.0-100.0) fL MCH 32.1 (25.0-34.0) pg MCHC 35.2 (32.0-36.0) g/dL RDW Std Deviation 41.4 (36.4-46.3) fL RDW Coeff of Jomar 12.2 (11.5-14.5) % Plt Count 208 (130-400) K/uL MPV 9.9 (9.4-12.4) fL Immature Gran % (Auto) 0.3 % Neut % (Auto) 79.2 % Lymph % (Auto) 7.0 % [place] % (Auto) 13.1 % Eos % (Auto) 0.2 % Baso % (Auto) 0.2 % Neut # (Auto) 9.70 H (1.40-6.50) K/uL Lymph # (Auto) 0.86 L (1.20-3.40) K/uL [place] # (Auto) 1.61 H (0.11-0.59) K/uL Eos # (Auto) 0.02 (0.00-0.50) K/uL Baso # (Auto) 0.03 (0.00-0.20) K/uL Immature Gran # (Auto) 0.04 (0.01-0.20) K/uL Sodium 134 L (136-145) mmol/L Potassium 3.8 (3.5-5.1) mmol/L Chloride 103 (98-107) mmol/L Carbon Dioxide 24 (21-32) mmol/L Anion Gap 7 (3-11) BUN 17 (6-23) mg/dl Creatinine 0.85 (0.6-1.4) mg/dl Est Cr Clr Drug Dosing 118.2 ml/min eGFR 98.25 BUN/Creatinine Ratio 20.0 (10-20) Glucose 137 H (70-99(Fasting)) mg/dl Lactate 0.9 (0.4-2.0) mmol/L Calcium 9.0 (8.6-10.3) mg/dl Total Bilirubin 1.0 (0.2-1.0) mg/dl AST 17 (13-39) U/L ALT 21 (7-52) U/L Alkaline Phosphatase 61 (34-104) U/L Troponin I High Sens 7.7 (0-20) pg/ml C-Reactive Protein 5.91 H (0-0.5) mg/dl Total Protein 7.3 (6.0-8.3) gm/dl Albumin 3.9 (3.4-5.0) gm/dl Globulin 3.4 (2.5-4.0) gm/dl Albumin/Globulin Ratio 1.1 (0.9-2) Lipase 14 (11-82) U/L Procalcitonin 0.30 (0-0.5) ng/ml Urine Color Yellow Urine Appearance Clear (Clear) Urine pH 6.0 (4.5-7.5) Ur Specific [place] >= 1.030 (1.000-1.030) Urine Protein 2+ H (Negative) Urine Glucose (UA) Negative (Negative) Urine Ketones Negative (Negative) Urine Blood 2+ H (Negative) Urine Nitrite Negative (Negative) Urine Bilirubin Negative (Negative) Urine Urobilinogen Negative (Negative) Ur Leukocyte Esterase 1+ H (Negative) Urine RBC 11-20 H (0-2) /hpf Urine WBC 21-50 H (0-5) /hpf Ur Epithelial Cells >20 H (0-2) /hpf Urine Bacteria 1+ H (None Seen) SARS-CoV-2 (PCR) (Negative) Influenza Type A (PCR) (Neg) Influenza Type B (PCR) (Neg) RSV (RT-PCR) (Neg) 01/17/24 Range/Units 12:05 WBC (4.8-10.8) K/ul RBC (4.70-6.10) M/uL Hgb (14.0-18.0) g/dl Hct (42.0-52.0) % MCV (80.0-100.0) fL MCH (25.0-34.0) pg MCHC (32.0-36.0) g/dL RDW Std Deviation (36.4-46.3) fL RDW Coeff of Jomar (11.5-14.5) % Plt Count (130-400) K/uL MPV (9.4-12.4) fL Immature Gran % (Auto) % Neut % (Auto) % Lymph % (Auto) % [place] % (Auto) % Eos % (Auto) % Baso % (Auto) % Neut # (Auto) (1.40-6.50) K/uL Lymph # (Auto) (1.20-3.40) K/uL [place] # (Auto) (0.11-0.59) K/uL Eos # (Auto) (0.00-0.50) K/uL Baso # (Auto) (0.00-0.20) K/uL Immature Gran # (Auto) (0.01-0.20) K/uL Sodium (136-145) mmol/L Potassium (3.5-5.1) mmol/L Chloride (98-107) mmol/L Carbon Dioxide (21-32) mmol/L Anion Gap (3-11) BUN (6-23) mg/dl Creatinine (0.6-1.4) mg/dl Est Cr Clr Drug Dosing ml/min eGFR BUN/Creatinine Ratio (10-20) Glucose (70-99(Fasting)) mg/dl Lactate (0.4-2.0) mmol/L Calcium (8.6-10.3) mg/dl Total Bilirubin (0.2-1.0) mg/dl AST (13-39) U/L ALT (7-52) U/L Alkaline Phosphatase (34-104) U/L Troponin I High Sens (0-20) pg/ml C-Reactive Protein (0-0.5) mg/dl Total Protein (6.0-8.3) gm/dl Albumin (3.4-5.0) gm/dl Globulin (2.5-4.0) gm/dl Albumin/Globulin Ratio (0.9-2) Lipase (11-82) U/L Procalcitonin (0-0.5) ng/ml Urine Color Urine Appearance (Clear) Urine pH (4.5-7.5) Ur Specific [place] (1.000-1.030) Urine Protein (Negative) Urine Glucose (UA) (Negative) Urine Ketones (Negative) Urine Blood (Negative) Urine Nitrite (Negative) Urine Bilirubin (Negative) Urine Urobilinogen (Negative) Ur Leukocyte Esterase (Negative) Urine RBC (0-2) /hpf Urine WBC (0-5) /hpf Ur Epithelial Cells (0-2) /hpf Urine Bacteria (None Seen) SARS-CoV-2 (PCR) NEGATIVE (Negative) Influenza Type A (PCR) Negative (Neg) Influenza Type B (PCR) Negative (Neg) RSV (RT-PCR) Negative (Neg) Administered Medications Discontinued Medications Sodium Chloride (Nss) 1,000 mls @ 999 mls/hr IV .Q1H1M ONE Stop: 01/17/24 12:22 Last Infusion: 01/17/24 12:32 Dose: Infused Documented By: Admin: 01/17/24 11:30 Dose: 999 mls/hr Documented By: LAYLA Piperacillin Sod/Tazobactam Sod (Zosyn) 4.5 gm in 100 mls @ 200 mls/hr IV NOW ONE; Protocol Stop: 01/17/24 12:02 Last Admin: 01/17/24 12:03 Dose: 200 mls/hr Documented By: LAYLA Ioversol (Optiray 320 100ml) 94 ml IV ONCE ONE Stop: 01/17/24 12:23 Last Admin: 01/17/24 12:22 Dose: 94 ml Documented By: MARK Imaging Data Attestation: I personally reviewed and interpreted this imaging study as follows: My Impression: CT of the abdomen and pelvis was obtained in the emergency department. My interpretation is stranding around the urinary bladder as well as the distal left ureter, there is no definite stone, final report below. 1 view chest x-ray was obtained in the emergency department. My interpretation is no free air or definite infiltrate, final report below. Radiologist's Impression: Abdomen/Pelvis CT 01/17/24 11:32 CT abd pelvis IV con only CLINICAL HISTORY: urine infection TECHNIQUE: Helical axial images of the abdomen and pelvis were obtained and displayed. Automated dose lowering techniques and/or adjustment according to patient size were utilized for this exam. This exam was performed with intravenous contrast. CT DOSE: 1563.23 mGy.cm COMPARISON: None available at the time of this dictation. FINDINGS: Lower chest: Bibasilar atelectasis versus scarring is seen. Liver: Unremarkable. No focal lesions are seen. Gallbladder and biliary tree: No calcified gallstones. Normal caliber wall. No intra- or extrahepatic biliary ductal dilation. Pancreas: Unremarkable, no focal lesions. Spleen: Unremarkable. Adrenals: Nodularity of the adrenal glands is noted. Kidneys and ureters: Renal cysts are seen. There is mild dilation and fat stranding about the distal left ureter with questionable wall thickening. Bladder: Diffuse homogeneous wall thickening is seen. Mild surrounding fat stranding is seen. Reproductive organs: Unremarkable. Bowel: Diverticulosis is seen without diverticulitis. The appendix is normal. There is a small hiatal hernia. Lymph nodes Retroperitoneal: Subcentimeter lymph nodes are noted. Pelvic: Unremarkable. Mesenteric: Unremarkable. Peritoneum: Normal. Vessels: Unremarkable. Abdominal wall: Bilateral fat-containing inguinal hernias are seen. Bones: Mild degenerative changes are seen. IMPRESSION: Findings are compatible with cystitis and possible ascending infection the distal left ureter. No evidence of hydronephrosis. ACT 112: Negative or not required by law. Electronically signed by: Bishop Man M.D. 01/17/2024 12:52 PM Chest X-Ray 01/17/24 11:32 XR chest 1V portable HISTORY: 63 years-old Male fever COMPARISON: 02/19/2021 TECHNIQUE: AP view the chest FINDINGS: Cardiac silhouette is mildly enlarged. Subsegmental bibasilar densities without pneumothorax, pleural effusion or overt pulmonary edema. IMPRESSION: 1. Mild subsegmental bibasilar opacities may represent atelectasis versus a mild pneumonitis. 2. Cardiomegaly without overt pulmonary edema. ACT 112: Negative or not required by law. The above report was generated using voice recognition software. It may contain grammatical, syntax or spelling errors. Electronically signed by: Lucio Moon M.D. 01/17/2024 12:22 PM Discharge Plan Visit Data Chief Complaint: Urinary Symptoms Stated Complaint: UTI, FEVER, BODYACHES, KIDNEY PAIN ED Provider: Joon Gates Discharge Problem: Acute pyelonephritis, Generalized weakness Patient Disposition: Being Evaluated by Hospitalist Forms Stand Alone Forms: My [facility] Prescriptions Prescriptions: No Action ciprofloxacin HCl 500 mg tablet 500 mg PO BID Qty: 28 0RF methenamine hippurate 1 gram tablet 1 g PO BID Qty: 180 3RF tramadol 50 mg tablet 50 mg PO TID PRN (Reason: pain) Qty: 14 0RF Referrals Referrals: Sami Barry MD [Primary Care Provider] -
[2024-01-17 11:44] LABS: Albumin Globulin Ratio 1.1 (0.9-2); Albumin Level 3.9 gm/dl (3.4-5.0); C Reactive Protein 5.91 mg/dl (0-0.5); Creatinine Clr Calc Pharmacy 118.2 ml/min; Globulin 3.4 gm/dl (2.5-4.0); Potassium 3.8 mmol/L (3.5-5.1); Total Protein 7.3 gm/dl (6.0-8.3)
[2024-01-17 11:50] LABS: Troponin I High Sensitivity 7.7 pg/ml (0-20)
[2024-01-17 12:01] LABS: WBC Urine 21-50 /hpf (0-5)
[2024-01-17 12:02] LABS: Bacteria Urine 1+ (None Seen); Epithelial Cell Urine >20 /hpf (0-2)
[2024-01-17] MEDS: PIPERACILLIN/TAZOBACTAM 4.5 GM/100 ML BAG IV ONE (12:03)
[2024-01-17] MEDS: OPTIRAY 320 100ml IV ONE (12:22)
--- NOTE | 2024-01-17 12:25 | XRay Report ---
XR chest 1V portable HISTORY: 63 years-old Male fever COMPARISON: 02/19/2021 TECHNIQUE: AP view the chest FINDINGS: Cardiac silhouette is mildly enlarged. Subsegmental bibasilar densities without pneumothorax, pleural effusion or overt pulmonary edema. IMPRESSION: 1. Mild subsegmental bibasilar opacities may represent atelectasis versus a mild pneumonitis. 2. Cardiomegaly without overt pulmonary edema. ACT 112: Negative or not required by law. The above report was generated using voice recognition software. It may contain grammatical, syntax o r spelling errors. Electronically signed by: Lucio Moon M.D. 01/17/2024 12:22 PM
[2024-01-17 12:52] LABS: Influenza A virus by PCR Negative (Neg); Influenza B virus by PCR Negative (Neg); RSV by PCR Negative (Neg); SARS CoV2 RNA(COVID-19) Ceph NEGATIVE (Negative)
--- NOTE | 2024-01-17 12:53 | CT Scan Report ---
CT abd pelvis IV con only CLINICAL HISTORY: urine infection TECHNIQUE: Helical axial images of the abdomen and pelvis were obtained and displayed. Automated dose lowering techniques and/or adjustment according to patient size were utilized for this exam. This e xam was performed with intravenous contrast. CT DOSE: 1563.23 mGy.cm COMPARISON: None available at the time of this dictation. FINDINGS: Lower chest: Bibasilar atelectasis versus scarring is seen. Liver: Unremarkable. No focal lesions are seen. Gallbladder and biliary tree: No calcified gallstones. Normal caliber wall. No intra- or extrahepatic biliary ductal dilation. Pancreas: Unremarkable, no focal lesions. Spleen: Unremarkable. Adrenals: Nodularity of the adrenal glands is noted. Kidneys and ureters: Renal cysts are seen. There is mild dilation and fat stranding about the distal left ureter with questionable wall thickening. Bladder: Diffuse homogeneous wall thickening is seen. Mild surrounding fat stranding is seen. Reproductive organs: Unremarkable. Bowel: Diverticulosis is seen without diverticulitis. The appendix is normal. There is a small hiatal hernia. Lymph nodes Retroperitoneal: Subcentimeter lymph nodes are noted. Pelvic: Unremarkable. Mesenteric: Unremarkable. Peritoneum: Normal. Vessels: Unremarkable. Abdominal wall: Bilateral fat-containing inguinal hernias are seen. Bones: Mild degenerative changes are seen. IMPRESSION: Findings are compatible with cystitis and possible ascending infection the distal left ureter. No oscar dence of hydronephrosis. ACT 112: Negative or not required by law. Electronically signed by: Bishop Man M.D. 01/17/2024 12:52 PM
--- NOTE | 2024-01-17 13:47 | Electrocardiogram Report ---
Test Reason : Blood Pressure : */* mmHG Vent. Rate : 99 BPM Atrial Rate : 99 BPM P-R Int : 146 ms QRS Dur : 78 ms QT Int : 318 ms P-R-T Axes : 40 71 56 degrees QTcB Int : 408 ms Normal sinus rhythm Normal ECG When compared with ECG of 19-Feb-2021 19:08, No significant change was found Confirmed by Ernie Stein ([id number]) on 01/17/2024 1:47:17 PM Referred By: Confirmed By: Ernie Stein
--- NOTE | 2024-01-17 14:36 | History & Physical Report ---
Date of Service January 17, 2024 Assessment & Plan (1) Acute pyelonephritis: (2) Neurogenic bladder: (3) History of recurrent UTIs: (4) HTN (hypertension): Plan This is a 63-year-old male with PMH of neurogenic bladder with straight cathing 3 times daily, history of recurrent UTIs, hypertension and other medical problems listed below who presents to ED with subjective fever and chills x 1 week and was found to have acute pyelonephritis. Acute pyelonephritis Neurogenic bladder H/o recurrent UTIs Follows with [facility] [place], 4 PO abx since Oct presenting with subjective fever, chills and malodorous urine x 1 week WBC elevated at 12.2 6K, UA suggestive of UTI CT abd/pelvis with findings compatible with cystitis and possible ascending infection the distal left ureter. No evidence of hydronephrosis Continue Zosyn Follow urine, blood cultures Transition from straight cath to henry catheter Urology consulted, plan discussed HTN Continue losartan DVT Ppx: SQ lovenox Code status: FULL PCP: Asha Dispo: admitted to med/surg Patient seen in collaboration with Dr. Carbajal. Please see addendum. I spent a total of 65 minutes coordinating, documenting, and providing care for this patient excluding time spent in the performance of separately billed services. History of Present Illness Primary Care Provider: Sami Barry MD This is a 63-year-old male with PMH of neurogenic bladder with straight cathing 3 times daily, history of recurrent UTIs, hypertension and other medical problems listed below who presents to ED with subjective fever and chills x 1 week. Patient states he has been on for oral antibiotics since October with ongoing symptoms he typically has with UTI-subjective fever, chills, muscle aches which have become more progressive in the past week. Was seen by Dr. Fu last week with discussion of scheduled CT abdomen for February but symptoms have progressed over the past week and patient came to ED for further evaluation. In addition to subjective fever and chills, starting to have pain in his lower back bilaterally that feels deep, "near my kidneys". Was 1 day into Cipro course, most recent antibiotic prescribed in outpatient setting. Denies any headache, chest pain, shortness of breath, nausea, vomiting, abdominal pain, diarrhea or constipation. Straight caths 3 times a day and reports only drinking 1.5 L of fluid daily. No dysuria but states urine is cloudy and has an odor. Allergies Allergy/AdvReac Type Severity Reaction Status Date / Time No Known Allergies Allergy * Verified 01/09/24 13:31 Home Medications Medication Instructions Recorded Confirmed Type methenamine hippurate 1 gram tablet 1 g PO BID #180 tabs 03/10/23 01/17/24 Rx ciprofloxacin HCl 500 mg tablet 500 mg PO BID #28 tabs 01/16/24 01/17/24 Rx Probiotic 1 cap PO DIRECTED 01/17/24 01/17/24 History cranberry 1 tab PO DIRECTED 01/17/24 01/17/24 History losartan 50 mg tablet 50 mg PO QAM 01/17/24 01/17/24 History Past Med/Surg History Problem List (Updated 01/17/24 @ 15:39 by Jolie Esteban PA-C) Generalized weakness (Acute) Acute pyelonephritis (Acute) Back pain Morbid obesity with body mass index (BMI) of 40.0 to 49.9 Hyponatremia (Acute) Acute dehydration (Acute) Neurogenic bladder Gram-negative bacteremia (Acute) Malodorous urine Benign prostatic hyperplasia with urinary obstruction (Acute) Dysuria (Acute) No chronic diseases present (Acute) UTI (urinary tract infection) (Acute) Urinary retention (Acute) Medical History (Updated 01/17/24 @ 15:39 by Jolie Esteban PA-C) History of recurrent UTIs HTN (hypertension) Bladder diverticulum Surgical History No pertinent past surgical history Social History Smoking Status: Never smoker Second Hand Exposure: No; Do You Dip or Chew Tobacco: No; Hx Alcohol Use: Yes Alcohol type: hard liquor Hx Substance Use: No Preferred Language: Botswanan Communication Ability: Effective Dust Puller Required: No Beliefs That Will Affect Care: None Current Living Situation: Spouse Feels Safe at Home: Yes Assistive Devices: Glasses Review of Systems Review of Systems: At least ten systems reviewed and negative except as noted in the HPI. Physical Exam Physical Exam: General Appearance: WD/WN, vitals as above, NAD, sitting up in bed, pleasant, conversing easily Head: normocephalic, atraumatic Eyes: normal inspection, PERRL, conjunctivae normal, anicteric sclerae ENT: external ear and nose normal, oropharynx normal Neck: normal visual inspection, trachea midline, no thyromegaly Respiratory: normal respiratory effort, lungs clear to auscultation, no wheeze, rales, rhonchi. No accessory muscle use Cardiovascular: regular rate, rhythm, no murmur, normal peripheral pulses, no BLE edema. Vessels: no JVD Chest: normal inspection of chest Abdomen/GI: normal bowel sounds, soft, nontender, no hepatosplenomegaly : No CVA TTP Extremities/Musculoskeletal: no cyanosis or clubbing, extremities motor strength 5/5 Neurologic: PERRL, EOMI, accommodation nl, no face palsy, no dysarthria, CN's II-XI intact bilaterally and moves all extremities Psychiatric: A+Ox3, euthymic affect Skin: no rashes, normal color, warm/dry Results & Data Results & Data Vital Signs (Past 12 Hours) Vital Signs Temp Pulse Pulse Resp BP BP Pulse Ox 01/17/24 14:00 82 22 156/95 H 96 01/17/24 12:31 156/98 H 01/17/24 12:30 82 21 94 01/17/24 12:30 81 01/17/24 12:09 85 19 95 01/17/24 11:30 94 01/17/24 10:34 37.0 C 122 H 18 130/78 92 O2 Del Method 01/17/24 14:00 Room Air 01/17/24 12:31 01/17/24 12:30 Room Air 01/17/24 12:30 01/17/24 12:09 Room Air 01/17/24 11:30 Room Air 01/17/24 10:34 Room Air Laboratory Results Short CBC 01/17/24 Range/Units 10:53 WBC 12.26 H (4.8-10.8) K/ul Hgb 15.1 (14.0-18.0) g/dl Hct 42.9 (42.0-52.0) % Plt Count 208 (130-400) K/uL BMP 01/17/24 10:53 Sodium 134 L Potassium 3.8 Chloride 103 Carbon Dioxide 24 BUN 17 Creatinine 0.85 Glucose 137 H Calcium 9.0 Liver Function 01/17/24 Range/Units 10:53 Total Bilirubin 1.0 (0.2-1.0) mg/dl AST 17 (13-39) U/L ALT 21 (7-52) U/L Alkaline Phosphatase 61 (34-104) U/L Albumin 3.9 (3.4-5.0) gm/dl Urine 01/17/24 Range/Units 11:05 Urine Color Yellow Urine Appearance Clear (Clear) Urine pH 6.0 (4.5-7.5) Ur Specific Roca >= 1.030 (1.000-1.030) Urine Protein 2+ H (Negative) Urine Glucose (UA) Negative (Negative) Diagnostic Findings Abdomen/Pelvis CT 01/17/24 11:32 CT abd pelvis IV con only CLINICAL HISTORY: urine infection TECHNIQUE: Helical axial images of the abdomen and pelvis were obtained and displayed. Automated dose lowering techniques and/or adjustment according to patient size were utilized for this exam. This exam was performed with intravenous contrast. CT DOSE: 1563.23 mGy.cm COMPARISON: None available at the time of this dictation. FINDINGS: Lower chest: Bibasilar atelectasis versus scarring is seen. Liver: Unremarkable. No focal lesions are seen. Gallbladder and biliary tree: No calcified gallstones. Normal caliber wall. No intra- or extrahepatic biliary ductal dilation. Pancreas: Unremarkable, no focal lesions. Spleen: Unremarkable. Adrenals: Nodularity of the adrenal glands is noted. Kidneys and ureters: Renal cysts are seen. There is mild dilation and fat stranding about the distal left ureter with questionable wall thickening. Bladder: Diffuse homogeneous wall thickening is seen. Mild surrounding fat stranding is seen. Reproductive organs: Unremarkable. Bowel: Diverticulosis is seen without diverticulitis. The appendix is normal. There is a small hiatal hernia. Lymph nodes Retroperitoneal: Subcentimeter lymph nodes are noted. Pelvic: Unremarkable. Mesenteric: Unremarkable. Peritoneum: Normal. Vessels: Unremarkable. Abdominal wall: Bilateral fat-containing inguinal hernias are seen. Bones: Mild degenerative changes are seen. IMPRESSION: Findings are compatible with cystitis and possible ascending infection the distal left ureter. No evidence of hydronephrosis. ACT 112: Negative or not required by law. Electronically signed by: Bishop Man M.D. 01/17/2024 12:52 PM Chest X-Ray 01/17/24 11:32 XR chest 1V portable HISTORY: 63 years-old Male fever COMPARISON: 02/19/2021 TECHNIQUE: AP view the chest FINDINGS: Cardiac silhouette is mildly enlarged. Subsegmental bibasilar densities without pneumothorax, pleural effusion or overt pulmonary edema. IMPRESSION: 1. Mild subsegmental bibasilar opacities may represent atelectasis versus a mild pneumonitis. 2. Cardiomegaly without overt pulmonary edema. ACT 112: Negative or not required by law. The above report was generated using voice recognition software. It may contain grammatical, syntax or spelling errors. Electronically signed by: Lucio Moon M.D. 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 Patient was started on ciprofloxacin 1 day ago FOOT WORKER, received 2 doses prior to presentation to the ED. Patient has been self cathing since 7 to 8 years, has recently decreased the frequency of cathing from 4 times a day to 3 times a day. Patient admits to drinking minimal fluids per day, approximately 1.5 L a day. Patient reports not measuring his temperature at home. Labs and imaging reviewed: WBC elevated at 12.2 6K, UA suggestive of UTI CTAP compatible with cystitis and possible ascending infection of the left distal ureter, no hydronephrosis noted. Recurrent UTI: Continue with Zosyn, urology consult, follow admitting blood and urine culture. History of hypertension: Continue home losartan. On exam: GENERAL: Alert and oriented x3. NAD, on RA. HEENT: No pallor, no icterus. Pupils equal, round and reactive to light. Oral mucosa moist. NECK: No JVD, no neck masses. HEART: S1 and S2 heard. Regular rate and rhythm. No murmur, no gallop. RESPIRATORY SYSTEM: Normal AP diameter. No accessory muscle use. No wheezing, no crackles. ABDOMEN: Soft, bowel sounds present, nontender, no distention. no CVA angle tender x b/l. CENTRAL NERVOUS SYSTEM: No facial droop. Speech is clear. Obeys simple commands. Moves extremities. EXTREMITIES: No edema, no erythema seen. I have seen and examined the patient and have discussed the case with the provider above. I agree with the assessment and plan as stated. Time spent: 30 min
--- NOTE | 2024-01-17 16:09 | Urology Consultation ---
Date of Consultation January 17, 2024 Assessment & Plan (1) UTI (urinary tract infection): (2) Neurogenic bladder: Plan 63-year-old male with history of neurogenic bladder and recurrent UTIs who performs straight catheterizations 3 times daily admitted with UTI. Afebrile with stable vitals at present. Labs showing a mild leukocytosis of 12.26 and normal renal function. Urine and blood cultures collected and pending. He is on IV Zosyn. CT abdomen pelvis reviewed and compatible with cystitis and possible ascending infection the distal left ureter, no evidence of hydronephrosis. Pt self catheterizes 3x/day. Recommended Menjivar catheter but he declined. He prefers to continue with intermittent self cath. Continue antibiotics and tailor per culture sensitivities. Continue supportive care. No acute intervention warranted. Urology to follow. History of Present Illness History of Present Illness 63-year-old male with history of neurogenic bladder and recurrent UTIs who performs straight catheterizations 3 times daily admitted with UTI and left ureteritis. Patient reported subjective fever and chills for approximately 1 week which have become progressively worse which prompted his arrival in the ED. On arrival he was afebrile and hemodynamically stable. Labs showing a mild leukocytosis of 12.26 and normal renal function. Urinalysis with 2+ blood, 1+ LE, 1+ bacteria. CT abdomen pelvis reviewed and compatible with cystitis and possible ascending infection the distal left ureter, no evidence of hydronephrosis. Urine and blood cultures collected and pending. He is on IV Zosyn. Admitted to medicine service. Patient was seen at bedside in the ED. He was awake and resting in bed on arrival. No acute distress. Reports chills. No fever at present. Patient straight catheterized to give urine sample. Allergies Allergy/AdvReac Type Severity Reaction Status Date / Time No Known Allergies Allergy * Verified 01/09/24 13:31 Home Medications Medication Instructions Recorded Confirmed Type methenamine hippurate 1 gram tablet 1 g PO BID #180 tabs 03/10/23 01/17/24 Rx ciprofloxacin HCl 500 mg tablet 500 mg PO BID #28 tabs 01/16/24 01/17/24 Rx Probiotic 1 cap PO DIRECTED 01/17/24 01/17/24 History cranberry 1 tab PO DIRECTED 01/17/24 01/17/24 History losartan 50 mg tablet 50 mg PO QAM 01/17/24 01/17/24 History Patient History Medical History (Updated 01/17/24 @ 15:39 by Jolie Esteban PA-C) History of recurrent UTIs HTN (hypertension) Bladder diverticulum Surgical History No pertinent past surgical history Social History Smoking Status: Never smoker Second Hand Exposure: No; Do You Dip or Chew Tobacco: No; Hx Alcohol Use: Yes Alcohol type: hard liquor Hx Substance Use: No Preferred Language: Arabic Communication Ability: Effective Wardrobe Specialist Required: No Beliefs That Will Affect Care: None Current Living Situation: Spouse Feels Safe at Home: Yes Assistive Devices: Glasses Review of Systems Review of Systems: All systems reviewed & are unremarkable except as noted in HPI & below Physical Exam Constitutional: no acute distress Respiratory: no respiratory distress and no labored breathing Musculoskeletal: Head/Neck/Chest: normocephalic Neurologic: moves all extremities and awake Psychiatric: A+Ox3, euthymic affect Results & Data Vital Signs (Past 12 Hours) Vital Signs Temp Pulse Pulse Resp BP BP Pulse Ox 01/17/24 14:49 36.8 C 01/17/24 14:00 82 22 156/95 H 96 01/17/24 12:31 156/98 H 01/17/24 12:30 82 21 94 01/17/24 12:30 81 01/17/24 12:09 85 19 95 01/17/24 11:30 94 01/17/24 10:34 37.0 C 122 H 18 130/78 92 O2 Del Method 01/17/24 14:49 01/17/24 14:00 Room Air 01/17/24 12:31 01/17/24 12:30 Room Air 01/17/24 12:30 01/17/24 12:09 Room Air 01/17/24 11:30 Room Air 01/17/24 10:34 Room Air PG Care Time/CCT Total # of Minutes Spent Total Time Spent with Patient: Total time spent is greater than 50% in coordination of care (as documented) at patient's floor/unit and/or counseling patient: Coding Level of Care Code 74773 IN/OBS CONSULT LVL 3,45M Diagnoses UTI (urinary tract infection) N39.0 Urinary tract infection type: acute cystitis Neurogenic bladder N31.9 (1) UTI (urinary tract infection) Urinary tract infection type: acute cystitis
[2024-01-17] MEDS: KETOROLAC TROMETHAMINE 15 MG/ML VIAL IV PRN (16:15)
[2024-01-17] MEDS ORDERED: ONDANSETRON INJ 2 MG/ML 2 ML VIAL IV PRN (17:20)
[2024-01-17] MEDS ORDERED: POLYETHYLENE (MIRALAX) 17 GM PACK PO PRN (17:20)
[2024-01-17] MEDS: ACETAMINOPHEN 325 MG TAB PO PRN (17:25)
[2024-01-17] MEDS: PIPERACILLIN/TAZOBACTAM 4.5 GM/100 ML BAG IV SCH (17:55)
[2024-01-18 07:00] LABS: Hematocrit (blood only) 40.5 % (42.0-52.0); Hemoglobin 14.2 g/dl (14.0-18.0); Mean Corpuscular Hemoglobin 32.3 pg (25.0-34.0); Mean Corpuscular Hgb Conc 35.1 g/dL (32.0-36.0); Mean Corpuscular Volume 92.3 fL (80.0-100.0); Mean Platelet Volume 9.9 fL (9.4-12.4); Platelet Count 182 K/uL (130-400); RDW Coefficient of Variation 12.1 % (11.5-14.5); RDW Standard Deviation 41.1 fL (36.4-46.3); Red Blood Count 4.39 M/uL (4.70-6.10)
[2024-01-18 07:17] LABS: BUN Creatinine Ratio 22.1 (10-20); Calcium 8.6 mg/dl (8.6-10.3); Creatinine Clr Calc Pharmacy 116.6 ml/min; Potassium 3.6 mmol/L (3.5-5.1)
[2024-01-18] MEDS: ENOXAPARIN INJ 40 MG/0.4 ML SYR SQ SCH (08:16)
[2024-01-18] MEDS: ADVANCED PROBIOTIC 625 MG CAPSULE PO SCH (08:16)
[2024-01-18] MEDS: LOSARTAN POTASSIUM 50 MG TAB PO SCH (08:16)
--- NOTE | 2024-01-18 11:57 | Urology Progress Note ---
Date of Service January 18, 2024 Assessment & Plan (1) UTI (urinary tract infection): (2) Neurogenic bladder: Plan 63-year-old male with history of neurogenic bladder and recurrent UTIs who performs straight catheterizations 3 times daily admitted with UTI. Afebrile with stable vitals at present. Labs today shows no leukocytosis and normal renal function. Urine and blood cultures pending. He is on IV Zosyn. CT abdomen pelvis reviewed and compatible with cystitis and possible ascending infection the distal left ureter, no evidence of hydronephrosis. Pt continues with self cath 3x/day - he declined Menjivar catheter placement. Continue antibiotics and tailor per culture sensitivities. Pt to continue with self catheterizations 3-4x/day. Plan to D/C when medically stable per primary team with course of appropriate PO antibiotics for complicated UTI. Will arrange outpatient follow-up with our service. Urology will sign-off. Please call with any further questions or concerns. Admission and Anticipated Discharge Date Admission Date: January 17, 2024 Subjective Pt seen at bedside today Awake and sitting in bedside chair on arrival No acute distress Reports he is feeling better overall Denies f/c/n/v Continues with self catheterizations Still with some back/flank pain today Review of Systems Constitutional: as per Subjective / HPI Genitourinary: + as per Subjective / HPI Physical Exam Constitutional: no acute distress Respiratory: no respiratory distress and no labored breathing Neurologic: moves all extremities and awake Psychiatric: A+Ox3, euthymic affect Results & Data Vital Signs (Past 12 Hours) Vital Signs Temp Pulse Resp BP Pulse Ox O2 Del Method 01/18/24 07:06 37 C 77 18 128/70 93 Room Air PG Care Time/CCT Total # of Minutes Spent Total Time Spent with Patient: Total time spent is greater than 50% in coordination of care (as documented) at patient's floor/unit and/or counseling patient: Coding Level of Care Code 48024 SUB INP/OBS CARE 2/35MIN Diagnoses UTI (urinary tract infection) N39.0 Urinary tract infection type: acute cystitis Neurogenic bladder N31.9 (1) UTI (urinary tract infection) Urinary tract infection type: acute cystitis
--- NOTE | 2024-01-18 13:58 | Hospitalist Progress Note ---
Date of Service January 18, 2024 Assessment & Plan (1) Sepsis: (2) Acute pyelonephritis: (3) Neurogenic bladder: (4) History of recurrent UTIs: (5) HTN (hypertension): Plan Patient with presumed upper urinary tract infection, complicated by neurogenic bladder and daily straight cath. Presented with sepsis on admission. Patient was on antibiotics prior to admission, suspect this is why cultures are not growing any specific bacteria. Anticipate continuing to monitor improvement on Zosyn and transitioning to oral Augmentin for a more prolonged course of antibiotics discharge within 24 hours Admission and Anticipated Discharge Date Admission Date: January 17, 2024 Subjective Patient is feeling stronger each day. Requesting to ambulate the halls. A little frustrated about the recurrent infections. Physical Exam Physical Exam: Constitutional: Alert, nontoxic, sitting in chair HEENT: Mucous membranes moist. Lungs: Clear to auscultation, decreased, no wheezes rales or rhonchi CV: S1-S2, regular Abdomen: Soft, nontender, nondistended Extremities: No significant edema Neuro: No focal deficits Psych: Cooperative, normal mood Results & Data Results & Data Vital Signs (Past 12 Hours) Vital Signs Temp Pulse Resp BP Pulse Ox O2 Del Method 01/18/24 07:06 37 C 77 18 128/70 93 Room Air Diagnostic Findings Reviewed imaging, laboratory and diagnostic studies. Pertinent findings as below. Blood cultures no growth Urine culture no growth to date, less than 1000 colonies Reviewed urine culture from outside laboratory: Urine from 01/09/2024 not cultured Urine from December 12, 2023, growing E. coli Urine from November 22, 2023 growing Enterococcus
[2024-01-18 19:46] VITALS: O2SAT 93
[2024-01-18] MEDS: MELATONIN 3 MG TAB PO PRN (20:15)
[2024-01-19 07:13] VITALS: BP 145/88; PULSE 71; RESP 16; TEMP 97.7
--- NOTE | 2024-01-19 11:32 | Discharge Summary ---
Discharge Summary Date of Service January 19, 2024 Principal Dx & Hospital Course #1 = Principal Diagnosis (1) Sepsis: (2) Acute pyelonephritis: (3) Neurogenic bladder: (4) History of recurrent UTIs: (5) HTN (hypertension): Plan Patient 63-year-old gentleman with known neurogenic bladder who straight caths 3-4 times daily. Presented to the emergency room with subjective chills and fever. He states he has been on and off antibiotics for the last couple months for different bacterial urinary tract infections. In the emergency room evaluation was consistent with signs and symptoms of sepsis and urinary tract infection and was referred for admission. Patient was cared for in the hospital. Was started on IV Zosyn to treat his infection. Urology consultation was obtained. They evaluated patient. After discussing with him there was no needed procedures and patient chose to continue with straight cath 3-4 times per day. Imaging question some early upper urinary tract infection. Blood and urine cultures showed no significant growth. However, patient was on Cipro at the time of admission. Here in the hospital patient's overall symptoms improved. He has no fevers. He is up and ambulatory. On the day of discharge patient did admit to maybe not being quite as diligent with a clean process for his straight cath. He has brushed up on those skills while here in the hospital and assures us that he will do a better job with that. Will complete a course of oral Augmentin since he seemed to respond very well to the Zosyn. A follow- up with his PCP and urologist as planned. Notes For Next Care Provider May need to consider chronic suppressive antibiotic therapy Medication Changes From Visit Discontinue Cipro Augmentin for 7 more days Admission HPI Per Admitting Provider This is a 63-year-old male with PMH of neurogenic bladder with straight cathing 3 times daily, history of recurrent UTIs, hypertension and other medical problems listed below who presents to ED with subjective fever and chills x 1 week. Patient states he has been on for oral antibiotics since October with ongoing symptoms he typically has with UTI-subjective fever, chills, muscle aches which have become more progressive in the past week. Was seen by Dr. Fu last week with discussion of scheduled CT abdomen for February but symptoms have progressed over the past week and patient came to ED for further evaluation. In addition to subjective fever and chills, starting to have pain in his lower back bilaterally that feels deep, "near my kidneys". Was 1 day into Cipro course, most recent antibiotic prescribed in outpatient setting. Denies any headache, chest pain, shortness of breath, nausea, vomiting, abdominal pain, diarrhea or constipation. Straight caths 3 times a day and reports only drinking 1.5 L of fluid daily. No dysuria but states urine is cloudy and has an odor. Admission Exam Per Admitting Provider See H&P Discharge Exam Constitutional: Alert, nontoxic Lungs: Clear to auscultation, decreased, no wheezes rales or rhonchi CV: S1-S2, regular Abdomen: Soft, nontender, nondistended Neuro: No focal deficits Psych: Cooperative, normal mood, Updated Medication List Medication Instructions Recorded Confirmed Type methenamine hippurate 1 gram tablet 1 g PO BID #180 tabs 03/10/23 01/17/24 Rx ciprofloxacin HCl 500 mg tablet 500 mg PO BID #28 tabs 01/16/24 01/17/24 Rx Probiotic 1 cap PO DIRECTED 01/17/24 01/17/24 History cranberry 1 tab PO DIRECTED 01/17/24 01/17/24 History losartan 50 mg tablet 50 mg PO QAM 01/17/24 01/17/24 History amoxicillin 875 mg-potassium 1 tab PO BID #14 tabs 01/19/24 Rx clavulanate 125 mg tablet Hospital Stay Data Consultations 01/17/24 13:22 ED Decision to Admit Stat 01/17/24 15:53 Consult Urology Routine Diagnostic Imagining Performed 01/17/24 11:32 CT abd pelvis IV con only Stat Reviewed imaging, laboratory and diagnostic studies. Pertinent findings as below. Blood and urine culture no definitive growth WBCs 9.8, improved Hemoglobin 14.2, stable Basic metabolic profile stable Pending Results Patient Have Any Pending Studies at Discharge: No Discharge Instructions Given to Patient (Per Discharging Provider) Discussed with your urologist possible prophylactic antibiotics Be extremely diligent with clean straight cath procedure Total Time Total Time Spent Total Time Spent (In Minutes): 25
== END 2024-01-19 12:25 | disposition home or self-care (01) | DRG 872 ==
LOC: ED 10:30 → SUATTDRO 14:34 → 3E 14:34